=== PATIENT | female | born 1945 | race Caucasian/White ===

== ENCOUNTER 2017-01-05 12:16 | Outpatient (CLI) | payer MEDICARE ==
--- NOTE | 2017-01-09 07:10 | Mammography Report ---
DIGITAL BILATERAL SCREENING MAMMOGRAM: 01/05/2017 CLINICAL HISTORY: A 71-year-old female in for routine screening mammogram. Patient's family history indicated a paternal cousin with breast cancer in her 40s. Patient did have bilateral breast implan ts that were removed four years ago. COMPARISON: 03/24/2009, 06/16/2011, 09/04/2012, 12/25/2014 TECHNIQUE: Craniocaudad and oblique lateral views of each breast were obtained with [facility] Full Fie ld digital mammography. To compliment the exam, axillary exaggerated craniocaudad view of each breas t was obtained. FINDINGS: Extremely dense breasts are noted bilaterally. Extensive bilateral intermediate dru-shape d calcifications are noted directed toward the nipple. These calcifications are classic for benign s ecretory disease and are unchanged. There is also a globular calcification in the 9 o'clock position of the right breast measuring 1.5 cm. This calcification considering its large size is of benign et iology. It either represents an old burned-out fibroadenoma or atypical area of benign fat necrosis. No change is noted as compared to multiple preceding exams. IMPRESSION: BREASTS APPEAR RADIOGRAPHICALLY BENIGN. BIRADS 2 - BENIGN. RECOMMENDATIONS: Annual bilateral screening mammography. STANDARD QUALIFYING STATEMENTS 1. This examination was reviewed with the aid of Computer-Aided Detection (CAD). 2. A negative or benign imaging report should not delay biopsy if clinically suspicious findings are present. Consider surgical consultation if warranted. More than 5% of cancers are not identified by i maging. 3. Dense breasts may obscure an underlying neoplasm. JOB #: [id number] EXT JOB #:[id number]
== END 2017-01-05 12:17 | disposition home or self-care (01) ==
LOC: DI 12:16
PROVIDERS: ATTEND Internal Medicine
DX: Z12.31 Encounter for screening mammogram for malignant neoplasm of breast (principal); Z80.3 Family history of malignant neoplasm of breast
CPT/HCPCS: 77067

== ENCOUNTER 2017-01-05 12:23 | Outpatient (CLI) | payer MEDICARE ==
--- NOTE | 2017-01-05 16:13 | DEXA Report ---
DEXA SCAN: 01/05/2017 CLINICAL INDICATION: Postmenopausal. TECHNIQUE: Dual energy x-ray absorptiometry (DXA) was performed on a Netre[employer] system. Regions measured are the AP spine, femoral neck, and, if needed, forearm. COMPARISON: None. In accordance with the International Society for Clinical Densitometry (ISCD) guidelines, data from previous exams may be reanalyzed using current recommendations and techniques. This is done to allow a more accurate basis for comparison with the current study. FINDINGS: The data for the lumbar spine is as follows: REGION BMD (g/cm/cm) T-SCORE Z-SCORE L1 1.084 -0.4 1.3 L2 1.299 0.8 2.5 L3 1.207 0.1 1.7 L4 1.212 0.1 1.8 TOTAL 1.200 0.2 1.8 NOTE: All evaluable vertebrae are used for classification. The data for the hip is as follows: REGION BMD (g/cm/cm) T-SCORE Z-SCORE Neck 0.708 -2.4 -0.6 TOTAL 0.793 -1.7 -0.1 NOTE: The femoral neck or total proximal femur, whichever is lowest, is used for classification. IMPRESSION: THE WHO CLASSIFICATION BASED ON THE INTERNATIONAL REFERENCE STANDARD IS OSTEOPENIA. THE FRACTURE RISK IS INCREASED. RECOMMENDATION: Patients with diagnosis of osteoporosis or osteopenia should have regular bone mineral density assessment. For those eligible for Medicare, routine testing is allowed once every 2 years. Testing frequency can be increased for patients who have rapidly progressing disease or for those who are receiving medical therapy to restore bone mass. COMMENT: World Health Organization (WHO) definitions for osteoporosis and osteopenia: NORMAL BMD: T-score at -1.0 or higher, fracture risk is low. OSTEOPENIA BMD: T-score between -1.0 and -2.5, fracture risk is increased. OSTEOPOROSIS BMD: T-score at -2.5 or lower, fracture risk high. National Osteoporosis Foundation recommends: 1. Obtain adequate dietary calcium (at least 1200 mg per day) and vitamin D (400 -800 international units per day). 2. Participate, as appropriate, in regular weightbearing and muscle- strengthening exercise. 3. Avoid tobacco use and reduce alcohol and caffeine intake. 4. For more detailed information see the website at www.NOF.org. MTDD
== END 2017-01-05 12:24 | disposition home or self-care (01) ==
LOC: DI 12:23
PROVIDERS: ATTEND Internal Medicine
DX: M85.88 Other specified disorders of bone density and structure, other site (principal)
CPT/HCPCS: 77080

== ENCOUNTER 2017-05-08 12:17 | Outpatient (CLI) | payer MEDICARE ==
--- NOTE | 2017-05-08 17:54 | XRAY Report ---
CHEST, TWO VIEWS: 05/08/2017 HISTORY: Intermittent cough. There is mild reverse S-shaped scoliosis. There is moderate degenerative change in the spine. The h eart size is normal. The lungs are clear. There is no pleural fluid, pneumothorax, or evidence of a n acute finding when compared with 09/19/2012. IMPRESSION: CLEAR LUNGS. NO ACUTE FINDINGS. JOB #: [id number] EXT JOB #:[id number]
== END 2017-05-08 12:18 | disposition home or self-care (01) ==
LOC: DI 12:17
PROVIDERS: ATTEND Registered Nurse
DX: R05 Cough (principal)
CPT/HCPCS: 71020

== ENCOUNTER 2018-04-26 10:25 | Outpatient (CLI) | payer MEDICARE ==
--- NOTE | 2018-05-01 11:24 | Mammography Report ---
Reason: INITIAL CALL TO PATIENT [facility] [id number] BNU Procedure Date: 04/26/2018 Accession Number: [id number] / [id number] Procedure: CHAVO - Screening Mammo Dig Bilat CPT Code: FULL RESULT: EXAM: Screening Mammo Dig Bilat DATE: 04/26/2018 1:26 PM CLINICAL HISTORY: Screening mammogram TECHNIQUE: Bilateral CC and MLO views were obtained. COMPARISON: Mammogram 01/05/2017 FINDINGS: The breast parenchyma is extremely dense which may limit the sensitivity of mammography. There are benign-appearing calcifications. No suspicious masses, clustered microcalcifications, or regions of architectural distortion are identified. IMPRESSION: Benign findings RECOMMENDATION: Routine annual screening unless otherwise clinically indicated. BIRADS CATEGORY 2: Benign findings STANDARD QUALIFYING STATEMENTS: 1. This examination was reviewed with the aid of Computer-Aided Detection (CAD). 2. A negative or benign imaging report should not delay biopsy if clinically suspicious findings are present. Consider surgical consultation if warrented. More than 5% of cancers are not identified by imaging. 3. Dense breasts may obscure an underlying neoplasm.
== END 2018-04-26 10:26 | disposition home or self-care (01) ==
LOC: DI 10:25
PROVIDERS: ATTEND Radiology Diagnostic Radiology
DX: Z12.31 Encounter for screening mammogram for malignant neoplasm of breast (principal)
CPT/HCPCS: 77067

== ENCOUNTER 2018-05-04 20:38 | Emergency (ER) | payer MEDICARE ==
[2018-05-04 20:54] VITALS: BP 138/82
--- NOTE | 2018-05-04 21:38 | ED Physician Documentation ---
PD HPI UPPER EXT INJURY - Stated complaint Stated Complaint: FINGER LAC - Chief complaint Chief Complaint: Laceration - History obtained from History obtained from: Patient - History of Present Illness Location: Right, Finger (ring) Type of injury: Laceration Timing - onset: How many hours ago (1) Timing - duration: Hours (1) Timing - details: Abrupt onset Pain level max: 3 Pain level now: 2 Improved by: Rest Worsened by: Moving, Palpating Associated symptoms: No: Weakness, Numbness, Tingling, Swelling, Discolored Recently seen: Not recently seen - Additonal information Additional information: Patient is a 73 year old female who presents to the emergency department with a laceration on the dorsal side of her R index finger. States that she reached her hand into a container not realizing there was a broken bottle inside. States her friend who was a nurse recommended that she come into the ER for stitches. States her last tetanus shot was 5 years ago. Review of Systems Neurologic: denies: Numbness PD PAST MEDICAL HISTORY - Past Medical History Past Medical History: Yes Cardiovascular: Hypertension, High cholesterol Endocrine/Autoimmune: HyPOthyroidism GI: GERD Psych: Anxiety - Past Surgical History Past Surgical History: Yes Ortho: Carpal Tunnel surgery, Other - Present Medications Home Medications: Ambulatory Orders Medication Instructions Recorded Confirmed No Known Home Medications 05/04/18 05/04/18 - Allergies Allergies/Adverse Reactions: Allergies Allergy/AdvReac Type Severity Reaction Status Date / Time metronidazole [From Flagyl] Allergy Unknown Unknown Verified 05/04/18 20:54 Metronidazole HCl * Allergy Unknown Unknown Verified 05/04/18 20:54 [From Flagyl] - Social History Does the pt smoke?: No Smoking Status: Never smoker Does the pt drink ETOH?: Yes Does the pt have substance abuse?: No - Immunizations Immunizations are current?: Yes PD ED PE NORMAL - Vitals Vital signs reviewed: Yes - General General: Alert and oriented X 3, No acute distress - HEENT HEENT: Moist mucous membranes - Neck Neck: Supple, no meningeal sign - Extremities Extremities: Other (R ring finger - 1cm, flap laceration, dorsal aspect. NVI. no tendon or joint involvement. ) - Neuro Neuro: Alert and oriented X 3 Results - Vitals Vitals: Vital Signs - 24 hr 05/04/18 20:51 Temperature 36 C L Heart Rate 103 H Respiratory 18 Rate Blood Pressure 138/82 H O2 Saturation 97 Oxygen O2 Source Room air Procedures - Laceration (location) R ring finger Length in cm: 1 Wound type: Flap, Superficial Neurovascular status: Sensory intact, Motor intact, Vascular intact Tendon involvement: Tendon intact. No: Tendon Injury Wound Preparation: Irrigated copiously NS, Wound explored, To the base Skin layer closure: Dermabond, Steri strips Other: Patient tolerated well, No complications, Neurovascular intact, Dressing applied (splint), Tetanus UTD Complexity: Simple PD MEDICAL DECISION MAKING - ED course Complexity details: considered differential, d/w patient, d/w family ED course: Patient is a 73-year-old female with a right ring finger laceration. This is superficial and concerned that a suture will not hold adequately. We discussed closure options and patient elected Steri-Strips and Dermabond. This was performed and tolerated well. A finger splint was then applied to immobilize the joint while the laceration heals. Warnings of infection and instructions on wound care given at bedside. Also counseled on how to minimize scarring. Tetanus is up-to-date Patient counseled regarding signs and symptoms for which I believe and urgent re-evaluation would be necessary. Patient with good understanding of and agreement to plan and is comfortable going home at this time This document was made in part using voice recognition software. While efforts are made to proofread this document, sound alike and grammatical errors may occur. - Sepsis Event Vital Signs: Vital Signs - 24 hr 05/04/18 20:51 Temperature 36 C L Heart Rate 103 H Respiratory 18 Rate Blood Pressure 138/82 H O2 Saturation 97 Oxygen O2 Source Room air Departure - Departure Disposition: 01 Home, Self Care Clinical Impression: Laceration Condition: Good Instructions: ED Laceration Ext Skin Glue Follow-Up: Rebecca Gonzales ARNP [Primary Care Provider] - Comments: Please keep the wound covered for 1 week. Do not put any antibiotic ointment on the wound because it will dissolve the glue. Return if you worsen or show signs of infection (redness, pus, swelling, fever, increased pain). Discharge Date/Time: 05/04/18 22:27
== END 2018-05-04 22:27 | disposition home or self-care (01) ==
LOC: ED 20:38
DX: S61.214A Laceration without foreign body of right ring finger without damage to nail, initial encounter (principal); W25.XXXA Contact with sharp glass, initial encounter; I10 Essential (primary) hypertension
CPT/HCPCS: 12001; 99282; 99283

== ENCOUNTER 2018-08-07 14:29 | Outpatient (CLI) | payer MEDICARE ==
--- NOTE | 2018-08-08 10:51 | XRAY Report ---
Reason: CHRONIC BACK PAIN Procedure Date: 08/07/2018 Accession Number: [id number] / [id number] Procedure: XR - Lumbar Spine 2 View CPT Code: FULL RESULT: EXAM: LUMBOSACRAL SPINE RADIOGRAPHY EXAM DATE: 08/07/2018 03:32 PM. CLINICAL HISTORY: Chronic back pain. COMPARISONS: None. TECHNIQUE: 3 views. FINDINGS: Alignment: There is 12-14 degrees of dextroscoliotic curvature apex at L1. No anterolisthesis. Bones: Five [id number] lumbar vertebral bodies are present. No fractures or bone lesions. Disks: There is mild degenerative disk space narrowing in the lower thoracic spine T12-L1, L1-L2 with mild to moderate anterior and lateral marginal osteophyte. Marginal osteophyte also noted at L4-L5 and L5-S1. Facets: Mild degenerative facet changes noted at L5-S1. Sacroiliac Joints: Unremarkable. Soft Tissues: The visualized bowel gas pattern appears normal. 18 mm well-corticated calcification noted soft tissues of the right chest likely within the breast, favoring benign popcorn-type calcification of fibroadenoma. IMPRESSION: Multilevel degenerative changes as described with 12-14 degrees of dextroscoliosis, apex at L1. RADIA
== END 2018-08-07 14:30 | disposition home or self-care (01) ==
LOC: DI 14:29
PROVIDERS: ATTEND Registered Nurse
DX: M47.817 Spondylosis without myelopathy or radiculopathy, lumbosacral region (principal); M41.86 Other forms of scoliosis, lumbar region
CPT/HCPCS: 72100

== ENCOUNTER 2019-05-19 14:38 | Outpatient (CLI) | payer MEDICARE ==
--- NOTE | 2019-05-20 09:07 | Mammography Report ---
Reason: SCREENING MAMMO Procedure Date: 05/19/2019 Accession Number: [id number] / [id number] Procedure: CHAVO - Screening Mammo w/Liang CPT Code: FULL RESULT: EXAM: Screening Mammo w/Liang DATE: 05/19/2019 3:32 PM CLINICAL HISTORY: Screening TECHNIQUE: (B) - Bilateral CC and MLO views were obtained. COMPARISON: None available PARENCHYMAL PATTERN: (VD) - The breasts demonstrate extremely dense parenchyma bilaterally, limiting the sensitivity of mammography. FINDINGS: Bilaterally symmetric benign-appearing secretory disease. Large calcified degenerating fibroadenoma upper outer quadrant right breast, middle one third of no clinical significance. Otherwise, there are no suspicious masses, calcifications, or areas of distortion. IMPRESSION: Benign findings. BI-RADS category 2. RECOMMENDATION: (ANNUAL) - Recommend routine annual screening mammography. BI-RADS CATEGORY: (2) - Benign Findings. STANDARD QUALIFYING STATEMENTS: 1. This examination was not reviewed with the aid of Computer-Aided Detection (CAD). 2. A negative or benign imaging report should not preclude biopsy if clinically suspicious findings are present. 3. Dense breasts may obscure an underlying neoplasm. 4. This examination was reviewed with the aid of 3D breast imaging (tomosynthesis).
== END 2019-05-19 14:39 | disposition home or self-care (01) ==
LOC: DI 14:38
DX: Z12.31 Encounter for screening mammogram for malignant neoplasm of breast (principal)
CPT/HCPCS: 77063; 77067

== ENCOUNTER 2019-06-24 13:54 | Outpatient (CLI) | payer MEDICARE ==
--- NOTE | 2019-06-25 11:47 | XRAY Report ---
Reason: DYSPNEA Procedure Date: 06/24/2019 Accession Number: [id number] / [id number] Procedure: XR - Chest 2 View X-Ray CPT Code: 63819 Final Report FULL RESULT: EXAM: CHEST RADIOGRAPHY EXAM DATE: 06/24/2019 02:07 PM. CLINICAL HISTORY: Dyspnea. COMPARISON: CHEST 2 VIEW PA/LAT 05/08/2017 12:20 PM. TECHNIQUE: 2 views. FINDINGS: Lungs/Pleura: Stable dense nodule at the right lateral costophrenic angle is consistent with a calcified nodule, either within the lung or the chest wall/breast. No new or acute focal opacities evident. No pleural effusion. No pneumothorax. Normal volumes. Mediastinum: Heart and mediastinal contours are unremarkable. Other: S shaped thoracolumbar scoliosis and associated degenerative disease redemonstrated. IMPRESSION: No acute abnormality of the chest or significant interval change demonstrated. RADIA
== END 2019-06-24 13:55 | disposition home or self-care (01) ==
LOC: DI 13:54
PROVIDERS: ATTEND Nurse Practitioner Family
DX: R06.00 Dyspnea, unspecified (principal)
CPT/HCPCS: 71046

== ENCOUNTER 2019-07-04 13:59 | Outpatient (CLI) | payer MEDICARE ==
[2019-07-04 17:25] LABS: EOSINOPHILS % (AUTO) 4.9 %; HGB - HEMOGLOBIN 13.2 g/dL (12.0-16.0); LYMPHOCYTES % (AUTO) 41.4 %; MEAN CORPUSCULAR HEMOGLOBIN 31.4 pg (27.0-31.0); MEAN CORPUSCULAR HGB CONC 32.4 g/dL (32.0-36.0); MEAN CORPUSCULAR VOLUME 96.9 fL (81.0-99.0); MEAN PLATELET VOLUME 11.2 fL (7.9-10.8); MONOCYTES % (AUTO) 9.7 %; NEUTROPHILS % (AUTO) 42.6 %; PLT - PLATELET COUNT 249 10^3/uL (130-450); RED CELL DISTRIBUTION WIDTH 14.2 % (12.0-15.0); WHITE BLOOD COUNT 9.8 x10^3/uL (4.8-10.8)
[2019-07-04 17:33] LABS: ABNORMAL LYMPHS % (MANUAL) 0 %; BAND NEUTROPHILS % (MANUAL) 0 %
[2019-07-04 17:55] LABS: DIFFERENTIAL COMMENT MANUAL DIFFERENTIAL; EOSINOPHILS # (MANUAL) 0.6 10^3/uL (0-0.7); LYMPHOCYTES % (MANUAL) 41 %; PLATELET ESTIMATE, MANUAL NORMAL (130-450,000) (NORMAL); PLATELET MORPHOLOGY NORMAL APPEARANCE (NORMAL); RBC MORPHOLOGY (MULTIPLE) NORMAL APPEARANCE (NORMAL)
== END 2019-07-04 14:00 | disposition home or self-care (01) ==
LOC: LAB.S 13:59
PROVIDERS: ATTEND Nurse Practitioner Family
DX: D72.820 Lymphocytosis (symptomatic) (principal)
CPT/HCPCS: 36415; 85025; 85651; 86140

== ENCOUNTER 2019-07-10 12:59 | Outpatient (CLI) | payer MEDICARE ==
[~2019-07-10 12:59] MED LIST: ALBUTEROL NEB 2.5 MG/3 ML INH ONE
== END 2019-07-10 13:00 | disposition home or self-care (01) ==
LOC: RT 12:59
PROVIDERS: ATTEND Nurse Practitioner Family
DX: R91.1 Solitary pulmonary nodule (principal)
CPT/HCPCS: 94010; 94727; 94729

== ENCOUNTER 2020-05-13 09:43 | Outpatient (CLI) | payer MEDICARE ==
--- NOTE | 2020-05-13 10:37 | DEXA Report ---
PROCEDURE: Dexa Spine and/or Hip INDICATIONS: MENOPAUSAL TECHNIQUE: Dual energy x-ray absorptiometry (DXA) was performed on a Q.ME System. Regions measur ed are the AP Spine, femoral neck, and if needed forearm. COMPARISON: None. FINDINGS: Lumbar Spine: Bone Mineral Density 1.256 g/cm/cm,T score 0.6, Left Hip: Bone Mineral Density 0.803 g/cm/cm,T score -1.6, Left Femoral Neck: Bone Mineral Density 0.680 g/cm/cm, T score -2.6, (T score greater or equal to -1.0: NORMAL) (T score from -1.1 to -2.4: OSTEOPENIA) (T score less than or equal to -2.5 to: OSTEOPOROSIS) Impression: Osteoporosis. Patients with diagnosis of osteoporosis or osteopenia should have regular bone mineral density assess ment. For those eligible for Medicare, routine testing is allowed once every 2 years. Testing frequ ency can be increased for patients who have rapidly progressing disease or for those who are receivin g medical therapy to restore bone mass. Reviewed by: Shiva Mcdonough MD on 05/13/2020 10:35 AM PDT Approved by: Shiva Mcdonough MD on 05/13/2020 10:35 AM PDT Station ID: [id number]
== END 2020-05-13 09:44 | disposition home or self-care (01) ==
LOC: DI 09:43
PROVIDERS: ATTEND Nurse Practitioner Family
DX: M81.0 Age-related osteoporosis without current pathological fracture (principal)
CPT/HCPCS: 77080

== ENCOUNTER 2020-05-21 12:49 | Outpatient (CLI) | payer MEDICARE ==
--- NOTE | 2020-05-24 10:27 | Mammography Report ---
BILATERAL DIGITAL DIAGNOSTIC MAMMOGRAM 3D/2D: 05/21/2020 CLINICAL: Diffuse left breast pain. / tenderness. Comparison is made to exams dated: 05/19/2019 mammogram, 04/26/2018 mammogram, 01/05/2017 mammogram, 12/25 mammogram, 09/04/2012 mammogram, and 06/16/2011 mammogram - [facility]. The t issue of both breasts is predominantly fatty. No significant masses, calcifications, or other findings are seen in either breast. There has been no significant interval change. IMPRESSION: NEGATIVE There is no mammographic evidence of malignancy. A 1 year screening mammogram is recommended. This exam was interpreted at Station ID: [id number]. NOTE: For mammograms, a report in lay terms will be sent to the patient. Approximately 15% of breast malignancies will not be visualized mammographically. In the management of a palpable breast mass, a negative mammogram must not discourage biopsy of a clinically suspicious lesion. Electronically Signed By: Kobe Diaz M.D., jr/hilario:05/21/2020 16:26:12 ACR BI-RADS Category 1: Negative 3341F PARENCHYMAL PATTERN: (F) - The breast(s) demonstrate(s) diffuse fatty replacement. BI-RADS CATEGORY: (1) - 1 RECOMMENDATION: (ANNUAL) - Recommend routine annual screening mammography. [id number] 1 year screening LATERALITY: (B)
== END 2020-05-21 12:50 | disposition home or self-care (01) ==
LOC: DI 12:49
PROVIDERS: ATTEND Nurse Practitioner Family
DX: N64.4 Mastodynia (principal)
CPT/HCPCS: 77066

== ENCOUNTER 2021-01-28 14:42 | Outpatient (CLI) | payer MEDICARE ==
--- NOTE | 2021-01-28 15:08 | XRAY Report ---
PROCEDURE: Knee 3 View RT INDICATIONS: PAIN IN RT KNEE TECHNIQUE: 3 views of the right knee(s) were acquired. COMPARISON: None. FINDINGS: Bones: No fractures or dislocations. No suspicious bony lesions. Mild to moderate tricompartmental osteoarthritis is seen more prominent in medial femoral tibial compartment. Soft tissues: No joint effusion. No suspicious soft tissue calcifications. IMPRESSION: Mild to moderate tricompartmental osteoarthritis. No fracture or dislocation. No signifi cant joint effusion. Reviewed by: Shiva Mcdonough MD on 01/28/2021 3:06 PM PDT Approved by: Shiva Mcdonough MD on 01/28/2021 3:06 PM PDT Station ID: [id number]
== END 2021-01-28 14:43 | disposition home or self-care (01) ==
LOC: DI 14:42
PROVIDERS: ATTEND Registered Nurse
DX: M25.561 Pain in right knee (principal); M17.11 Unilateral primary osteoarthritis, right knee

== ENCOUNTER 2021-02-18 16:00 | Outpatient (CLI) | payer MEDICARE | END 2021-02-18 16:01 | disposition home or self-care (01) | LOC: DI 16:00 | PROVIDERS: ATTEND Registered Nurse | DX: K11.7 Disturbances of salivary secretion (principal); M95.8 Other specified acquired deformities of musculoskeletal system | CPT/HCPCS: 81599 ==

== ENCOUNTER 2021-02-18 16:11 | Outpatient (CLI) | payer MEDICARE ==
--- NOTE | 2021-02-18 16:56 | XRAY Report ---
PROCEDURE: Chest 3 View X-Ray INDICATIONS: Abnormal prominence of the clavicle. TECHNIQUE: 2 view(s) of the chest. COMPARISON: None. FINDINGS: There is some minimal asymmetric prominence of the right sternoclavicular joint which may be due to d egenerative change. Otherwise the clavicles appear symmetric and normal in appearance. There is no fr acture deformity in either clavicle. Remaining osseous structures intact. Cardiomediastinal silhouett e is normal. Lungs are clear. IMPRESSION: Minimal asymmetric prominence of the right sternal clavicular joint which could be due t o degenerative change. A CT chest would be recommended if there is clinical concern for a primary bon e neoplasm or other process related to the clavicles, as chest radiography is relatively insensitive. Reviewed by: Kobe Diaz MD on 02/18/2021 4:54 PM PDT Approved by: Kobe Diaz MD on 02/18/2021 4:54 PM PDT Station ID: [id number]
== END 2021-02-18 16:12 | disposition home or self-care (01) ==
LOC: DI 16:11
PROVIDERS: ATTEND Registered Nurse
DX: M95.8 Other specified acquired deformities of musculoskeletal system (principal); K11.7 Disturbances of salivary secretion
CPT/HCPCS: 81599; 86235

== ENCOUNTER 2022-02-02 15:09 | Outpatient (CLI) | payer MEDICARE ==
[2022-02-02 15:22] LABS: BASOPHILS # (AUTO) 0.1 10^3/uL (0.0-0.1); BASOPHILS % (AUTO) 1.1 %; EOSINOPHILS # (AUTO) 0.2 10^3/uL (0.0-0.7); EOSINOPHILS % (AUTO) 2.7 %; HCT - HEMATOCRIT 40.3 % (37.0-47.0); HGB - HEMOGLOBIN 13.5 g/dL (12.0-16.0); LYMPHOCYTES # (AUTO) 4.1 10^3/uL (1.5-3.5); LYMPHOCYTES % (AUTO) 45.7 %; MEAN CORPUSCULAR HEMOGLOBIN 31.5 pg (27.0-31.0); MEAN CORPUSCULAR HGB CONC 33.5 g/dL (32.0-36.0); MEAN CORPUSCULAR VOLUME 93.9 fL (81.0-99.0); MONOCYTES # (AUTO) 0.9 10^3/uL (0.0-1.0); MONOCYTES % (AUTO) 10.2 %; NEUTROPHILS # (AUTO) 3.6 10^3/uL (1.5-6.6); NEUTROPHILS % (AUTO) 39.9 %; PLT - PLATELET COUNT 231 10^3/uL (130-450); RED BLOOD COUNT 4.29 10^6/uL (4.20-5.40); RED CELL DISTRIBUTION WIDTH 14.7 % (12.0-15.0)
[2022-02-02 15:37] LABS: ALBUMIN 4.2 g/dL (3.2-5.5); ALBUMIN/GLOBULIN RATIO 1.3 (1.0-2.2); BILIRUBIN,TOTAL 0.5 mg/dL (0.2-1.0); CALCIUM 9.6 mg/dL (8.5-10.3); CREATININE 0.9 mg/dL (0.4-1.0); TOTAL PROTEIN 7.5 g/dL (6.7-8.2)
[2022-02-02 20:45] LABS: ESTIMATED AVERAGE GLUCOSE 114 mg/dL (70-100); HEMOGLOBIN A1c% 5.6 % (4.27-6.07)
== END 2022-02-02 15:10 | disposition home or self-care (01) ==
LOC: LAB 15:09
PROVIDERS: ATTEND Registered Nurse
DX: D72.820 Lymphocytosis (symptomatic) (principal); R79.9 Abnormal finding of blood chemistry, unspecified
CPT/HCPCS: 36415; 80053; 83036; 85025

== ENCOUNTER 2022-06-15 10:47 | Outpatient (CLI) | payer MEDICARE | END 2022-06-15 10:48 | disposition critical access hospital (66) | LOC: EMS 10:47 | DX: R10.84 Generalized abdominal pain (principal); R11.2 Nausea with vomiting, unspecified; R19.7 Diarrhea, unspecified | CPT/HCPCS: A0425; A0427 ==

== ENCOUNTER 2022-06-15 11:12 | Inpatient (IN) | payer MEDICARE ==
[2022-06-15 11:35] LABS: BASOPHILS # (AUTO) 0.1 10^3/uL (0.0-0.1); BASOPHILS % (AUTO) 0.7 %; EOSINOPHILS # (AUTO) 0.4 10^3/uL (0.0-0.7); HCT - HEMATOCRIT 42.5 % (37.0-47.0); LYMPHOCYTES # (AUTO) 4.5 10^3/uL (1.5-3.5); LYMPHOCYTES % (AUTO) 23.3 %; MEAN CORPUSCULAR HEMOGLOBIN 30.8 pg (27.0-31.0); MEAN CORPUSCULAR HGB CONC 32.9 g/dL (32.0-36.0); MEAN CORPUSCULAR VOLUME 93.6 fL (81.0-99.0); MEAN PLATELET VOLUME 10.3 fL (7.9-10.8); MONOCYTES # (AUTO) 1.1 10^3/uL (0.0-1.0); MONOCYTES % (AUTO) 5.6 %; NEUTROPHILS % (AUTO) 67.8 %; PLT - PLATELET COUNT 245 10^3/uL (130-450); RED BLOOD COUNT 4.54 10^6/uL (4.20-5.40); RED CELL DISTRIBUTION WIDTH 14.6 % (12.0-15.0); WHITE BLOOD COUNT 19.2 x10^3/uL (4.8-10.8)
[2022-06-15] MEDS ORDERED: SODIUM CHLORIDE 0.9% 1,000 ML IV STA ×2 (12:00→14:30)
[2022-06-15] MEDS ORDERED: MORPHINE 2 MG/ML CARPUJECT IVP STA (12:00)
[2022-06-15] MEDS ORDERED: ONDANSETRON 4 MG/2 ML VIAL IVP STA (12:00)
[2022-06-15] MEDS ORDERED: iohexoL-300 100 ML VIAL ONE (12:06)
[2022-06-15 12:15] LABS: ALBUMIN/GLOBULIN RATIO 1.2 (1.0-2.2); ALKALINE PHOSPHATASE 49 IU/L (42-121); ALT ALANINE AMINOTRANSFERASE 23 IU/L (10-60); AST ASPARTATE AMINOTRANSFERASE 27 IU/L (10-42); BILIRUBIN,TOTAL 0.7 mg/dL (0.2-1.0); BUN - BLOOD UREA NITROGEN 13 mg/dL (6-20); CALCIUM 9.4 mg/dL (8.5-10.3); CARBON DIOXIDE - CO2 26 mmol/L (21-32); CHLORIDE 103 mmol/L (101-111); CREATININE 0.8 mg/dL (0.4-1.0); GFR - MDRD 69 (>89); GLUCOSE 125 mg/dL (70-100); LIPASE > 4800 U/L (22-51); POTASSIUM 3.8 mmol/L (3.5-5.0); SODIUM 139 mmol/L (135-145); TOTAL PROTEIN 7.3 g/dL (6.7-8.2)
--- NOTE | 2022-06-15 12:20 | ED Physician Documentation ---
PD HPI ABD PAIN - Stated complaint Stated Complaint: ABD PX - Chief complaint Chief Complaint: Abd Pain - History obtained from History obtained from: Patient - Additional information Additional information: Patient is a 77-year-old female presenting for evaluation of right upper quadrant pain and vomiting that started suddenly this morning after having her morning coffee. She reports using honey and creamer in her coffee. She has had sharp right upper quadrant pain and several episodes of emesis consisting of bile. There is been no blood in her emesis. She had several episodes of loose stools this morning with no blood. She had Khmer food last night denies having any abdominal symptoms then. She feels chills and achy And generally unwell. She reports all having her gallbladder and denies abdominal surgeries. She denies chest pain or difficulty breathing. Nothing makes her symptoms better. She did receive 4 mg of IV Zofran from EMS without any improvement. Patient denies alcohol use. She denies history of pancreatitis or gallstones. Review of Systems Constitutional: denies: Fever Nose: denies: Congestion Cardiac: denies: Chest pain / pressure Respiratory: denies: Dyspnea, Cough GI: reports: Abdominal Pain, Nausea, Vomiting Musculoskeletal: denies: Back pain Neurologic: denies: Headache PD PAST MEDICAL HISTORY - Past Medical History Cardiovascular: Hypertension, High cholesterol Endocrine/Autoimmune: HyPOthyroidism GI: GERD Psych: Anxiety - Past Surgical History Past Surgical History: Yes Ortho: Carpal Tunnel surgery, Other - Present Medications Home Medications: Ambulatory Orders Medication Instructions Recorded Confirmed Levothyroxine [Synthroid] 75 mcg PO QDAC 06/15/22 - Allergies Allergies/Adverse Reactions: Allergies Allergy/AdvReac Type Severity Reaction Status Date / Time metronidazole [From Flagyl] Allergy Unknown Unknown Verified 06/15/22 11:29 Metronidazole HCl * Allergy Unknown Unknown Verified 06/15/22 11:29 [From Flagyl] - Social History Does the pt smoke?: No Smoking Status: Never smoker Does the pt drink ETOH?: Yes Does the pt have substance abuse?: No - Immunizations Immunizations are current?: Yes PD ED PE NORMAL - General General: Alert and oriented X 3, Well developed/nourished, Other (Appears uncomfortable, actively vomiting (bilious emesis)) - HEENT HEENT: Atraumatic, Moist mucous membranes - Neck Neck: Supple, no meningeal sign - Cardiac Cardiac: RRR, Strong equal pulses - Respiratory Respiratory: No respiratory distress, Clear bilaterally - Abdomen Abdomen: Normal bowel sounds, Soft, Non distended, Other (Epigastric and right upper quadrant tenderness to palpation With guarding, no rebound, no lower a bdominal tenderness) - Derm Derm: Warm and dry - Extremities Extremities: No edema - Neuro Neuro: Normal speech Results - Vitals Vitals: Vital Signs - 24 hr 06/15/22 06/15/22 06/15/22 11:25 11:31 13:29 Temperature 36.4 C L 36.5 C Heart Rate 69 99 88 Respiratory 9 L 12 16 Rate Blood Pressure 145/66 H 145/66 H 133/60 H O2 Saturation 100 100 96 Oxygen O2 Source Room air - EKG (time done) 1221 Rate: Rate (enter#) Rhythm: NSR Jay: Normal Ischemia: No: ST elevation c/w ischemia - Labs Labs: Laboratory Tests 06/15/22 06/15/22 06/15/22 11:20 11:20 11:20 WBC 19.2 H RBC 4.54 Hgb 14.0 Hct 42.5 MCV 93.6 MCH 30.8 MCHC 32.9 RDW 14.6 Plt Count 245 MPV 10.3 Neut # (Auto) 13.0 H Lymph # (Auto) 4.5 H Cannon # (Auto) 1.1 H Eos # (Auto) 0.4 Baso # (Auto) 0.1 Absolute Nucleated RBC 0.00 Nucleated RBC % 0.0 Sodium 139 Potassium 3.8 Chloride 103 Carbon Dioxide 26 Anion Gap 10.0 BUN 13 Creatinine 0.8 Estimated GFR (MDRD) 69 L Glucose 125 H Lactic Acid Calcium 9.4 Total Bilirubin 0.7 AST 27 ALT 23 Alkaline Phosphatase 49 Total Protein 7.3 Albumin 4.0 Globulin 3.3 Albumin/Globulin Ratio 1.2 Triglycerides 124 Cholesterol 229 H LDL Cholesterol, Calc 136 H VLDL Cholesterol 25 HDL Cholesterol 68 LDL/HDL Ratio 2.0 Cholesterol/HDL Ratio 3.4 Lipase > 4800 H Urine Color Urine Clarity Urine pH Ur Specific [place] Urine Protein Urine Glucose (UA) Urine Ketones Urine Occult Blood Urine Nitrite Urine Bilirubin Urine Urobilinogen Ur Leukocyte Esterase Ur Microscopic Review Urine Culture Comments SARS-CoV-2 (PCR) 06/15/22 06/15/22 06/15/22 12:15 12:17 14:06 WBC RBC Hgb Hct MCV MCH MCHC RDW Plt Count MPV Neut # (Auto) Lymph # (Auto) Cannon # (Auto) Eos # (Auto) Baso # (Auto) Absolute Nucleated RBC Nucleated RBC % Sodium Potassium Chloride Carbon Dioxide Anion Gap BUN Creatinine Estimated GFR (MDRD) Glucose Lactic Acid 2.2 Calcium Total Bilirubin AST ALT Alkaline Phosphatase Total Protein Albumin Globulin Albumin/Globulin Ratio Triglycerides Cholesterol LDL Cholesterol, Calc VLDL Cholesterol HDL Cholesterol LDL/HDL Ratio Cholesterol/HDL Ratio Lipase Urine Color YELLOW Urine Clarity CLEAR Urine pH 5.5 Ur Specific [place] <=1.005 Urine Protein NEGATIVE Urine Glucose (UA) NEGATIVE Urine Ketones NEGATIVE Urine Occult Blood NEGATIVE Urine Nitrite NEGATIVE Urine Bilirubin NEGATIVE Urine Urobilinogen 0.2 (NORMAL) Ur Leukocyte Esterase NEGATIVE Ur Microscopic Review NOT INDICATED Urine Culture Comments NOT INDICATED SARS-CoV-2 (PCR) NOT DETECTED PD MEDICAL DECISION MAKING - ED course Complexity details: reviewed results, re-evaluated patient, d/w patient ED course: Pt with epigastric and RUQ pain. Found to have pancreatitis. No pseudocyst or abscess. No gallstones. Denies heavy ETOH use and triglycerides not elevated. Discussed with hospitalist for admission. Departure - Departure Disposition: 66 [facility] DC/Xfer Clinical Impression: Acute pancreatitis Qualifiers: Acute pancreatitis complication: no infection or necrosis Condition: Stable Discharge Date/Time: 06/15/22 17:56
[2022-06-15] MEDS ORDERED: iohexoL-300 100 ML VIAL IVP ONE (12:48)
--- NOTE | 2022-06-15 13:16 | CT Report ---
PROCEDURE: ABDOMEN/PELVIS W INDICATIONS: upper abd pain R>L/vomiting CONTRAST: 100ml omni 300 TECHNIQUE: After the administration of iv contrast, 5 mm thick sections acquired from the diaphragms to the symp hysis. 5 mm thick coronal and sagittal reformats were acquired. For radiation dose reduction, the f ollowing was used: automated exposure control, adjustment of mA and/or kV according to patient size. COMPARISON: None. FINDINGS: Image quality: Excellent. ABDOMEN: Lung bases: Lung bases are clear. Heart size is normal. Solid organs: Liver and spleen are normal in size and enhancement. Gallbladder is unremakable. Ramon iary system is non dilated. Pancreas demonstrates mild peripancreatic fluid without focal abscess or pseduocyst. Mild pancreatic edema is present. No ductal dilation. No adrenal nodules. Kidneys dem onstrate normal size and enhancement, without hydronephrosis. Peritoneum and bowel: Bowel loops demonstrate normal wall thickness and caliber. Colonic diverticul a are present without inflammatory change. Nodes and vessels: No retroperitoneal or mesenteric adenopathy by size criteria. Aorta and inferior vena cava are normal in size. Miscellaneous: Mild fat containing ventral hernia. PELVIS: Genitourinary: Bladder wall thickness is normal. Miscellaneous: No inguinal hernias or adenopathy. Bones: No suspicious bony lesions. No vertebral body compression fractures. IMPRESSION: Mild enlarged pancreatic edema with peripancreatic fluid consistent with pancreatitis. No abscess or pseudocysts. Diverticulosis. Reviewed by: Josey Phan MD on 06/15/2022 1:15 PM PDT Approved by: Josey Phan MD on 06/15/2022 1:15 PM PDT Station ID: [id number]
--- NOTE | 2022-06-15 14:06 | Ultrasound Report ---
PROCEDURE: Abdomen Limited INDICATIONS: RUQ pain TECHNIQUE: Real-time focused scanning was performed of the abdomen, with image documentation. COMPARISON: Same day CT abdomen and pelvis FINDINGS: Gallbladder normal. Liver unremarkable other than mild hepatic steatosis. No focal hepatic mass. Intrahepatic and extra hepatic biliary ducts are within normal limits. Visualized portions of the pancreas unremarkable. Right kidney normal. IMPRESSION: No acute finding. Mild hepatic steatosis. Reviewed by: Kobe Diaz MD on 06/15/2022 2:04 PM PDT Approved by: Kobe Diaz MD on 06/15/2022 2:04 PM PDT Station ID: [id number]
[2022-06-15 14:11] LABS: CHOL/HDL RATIO 3.4 (<4.4); CHOLESTEROL 229 mg/dL; HDL CHOLESTEROL 68 mg/dL; LDL CHOLESTEROL,CALCULATED 136 mg/dL; TRIGLYCERIDES 124 mg/dL; VLDL CHOLESTEROL 25 mg/dL
[2022-06-15 14:17] LABS: BILIRUBIN,URINE NEGATIVE (NEGATIVE); CLARITY,URINE CLEAR (CLEAR); GLUCOSE, URINE (UA) NEGATIVE (NEGATIVE); KETONES,URINE (UA) NEGATIVE (NEGATIVE); LEUKOCYTE ESTERASE, URINE NEGATIVE (NEGATIVE); NITRITE,URINE NEGATIVE (NEGATIVE); OCCULT BLOOD,URINE NEGATIVE (NEGATIVE); PH,URINE 5.5 PH (5.0-7.5); PROTEIN,URINE NEGATIVE (NEGATIVE); UROBILINOGEN,URINE 0.2 (NORMAL) E.U./dL (NORMAL)
[2022-06-15] MEDS ORDERED: METOCLOPRAMIDE 10 MG/2 ML VIAL IVP STA (14:30)
[2022-06-15] MEDS ORDERED: PROCHLORPERAZINE 10 MG/2 ML VIAL IVP PRN (14:31)
[2022-06-15] MEDS ORDERED: ONDANSETRON ODT 4 MG TABLET TL PRN (14:31)
[2022-06-15] MEDS ORDERED: GADOBUTROL 7.5 MMOL/7.5 ML VIAL ONE (14:51)
[2022-06-15] MEDS ORDERED: PROCHLORPERAZINE 10 MG/2 ML VIAL IVP STA (16:18)
[2022-06-15] MEDS ORDERED: GADOBUTROL 7.5 MMOL/7.5 ML VIAL IVP ONE (16:21)
--- NOTE | 2022-06-15 16:35 | MRI Report ---
PROCEDURE: MRCP W/WO INDICATIONS: pancreatitis CONTRAST: 6.4 TECHNIQUE: Coronal ultra fast SE through the abdomen, axial 2-D spoiled GE in- and [id number], and breath-hold T2 FSE with fat saturation through the biliary system and pancreas. Oblique coronal and axial thin- slice ultra fast SE, radial thick-slab ultra fast SE centered on the extrahepatic bile ducts. COMPARISON: CT abdomen pelvis and bladder ultrasound earlier today. FINDINGS: Image quality: Poor. Pancreas and biliary system: Homogeneous intrinsic T1 signal of the pancreas. There is peripancreatic T2 hyperintense signal consistent with edema. No loculated peripancreatic fluid collection. Edema at the paracolic gutters. No pancreatic ductal dilatation. No biliary ductal dilatation. No intraluminal filling defect. Gallbladder is not distended. No gallst ones seen. Other solid organs: Liver and spleen are normal in size. No adrenal nodules. Both kidneys are norm al in size, without hydronephrosis. Nodes and vessels: No retroperitoneal or mesenteric adenopathy by size criteria. Aorta and inferior vena cava are normal in size. Bowel and peritoneum: Unenhanced bowel loops are normal in caliber. No free fluid. Lung bases: No basal pleural effusions. Heart size is normal. Bones and soft tissues: No ventral hernias. Mild scoliosis. Bone marrow is of normal overall signal . IMPRESSION: 1. Findings consistent with interstitial edematous pancreatitis. 2. No necrosis or loculated peripancreatic fluid collection at this time. 3. No gallstones seen. No biliary or pancreatic ductal dilatation. Reviewed by: Toni Nava MD on 06/15/2022 4:33 PM PDT Approved by: Toni Nava MD on 06/15/2022 4:33 PM PDT Station ID: [id number]
--- NOTE | 2022-06-15 17:59 | HISTORY & PHYSICAL EXAMINATION ---
Chief Complaint - Chief Complaint Chief Complaint: Pancreatitis History of Present Illness - Admitted From Admitted From:: ED - History Obtained From History obtained from: Patient Exam Limitations: She was under sedation from pain medication. - History of Present Illness HPI Comment/Other: Ms. William is a 77 year old woman who was diagnosed with pancreatitis today after presenting to the ED this morning with abdominal pain and nausea. She says the pain is located in the epigastric region and radiates to the right upper quadrant. The pain has been constant since it started. She says she drank some coffee this morning with honey when she suddenly felt nauseous. She went to the bathroom and felt like she was going to have diarrhea but did not have any bowel movement at that time. She had one episode of vomiting when she was at home and vomited up the coffee she drank earlier. She has continued to vomit throughout the rest of today and the vomit has been yellow in color. She says the pain also started during this time too and the pain has been constant since this morning. She says she has never had pain like this before. She did eat some food at a [employer] last night and drank some wine with her dinner. She has experienced episodes of epigastric abdominal pain on and off in the past 30 years, which she says was caused by indigestion related to eating an unhealthier diet. She takes Tums for the indigestion. She has also taken Omeprazole one to two times a day for acid reflux. She does not have a history of right upper quadrant abdominal pain. She also does not have a history of abdominal surgeries. She does not have a family history of pancreatitis, frequent use of alcohol, or unexplained weight loss. She does not have any fever, chest pain, or shortness of breath. She was diagnosed with COVID-19 and influenza at the same time four weeks ago, and experienced a lack of appetite only due to being sick. She has recovered from this since. History - Past Medical History Cardiovascular: reports: Hypertension (Patient denies diagnosis of hypertension at this time), High cholesterol (Patient denies diagnosis of high cholesterol at this time) Endocrine/Autoimmune: reports: HyPOthyroidism (Patient denies diagnosis of h ypothyroidism at this time ) GI: reports: GERD Psych: reports: Anxiety (Patient denies diagnosis of anxiety at this time) Derm: reports: Other (She has a history of pre-cancerous skin lesions that have been removed. ) - Past Surgical History Ortho: reports: Carpal Tunnel surgery (Patient denies previous carpal tunnel surgery at this time ), Other (Patient denies history of surgeries at this time) - Family & Social History Family History: Mother: (Her father of pancreatic cancer at 82. Her mother of heart issues at 94. ), Father: , Other family: Alive and Well (Her brother has difficulties related to swallowing.) Living arrangement: At home Living Situation: With spouse/s.o. (She did use tobacco in her early 20s but does not use tobacco now. She drinks alcohol about once a month and usually drinks either a Cinda or a [employer] Lemonade. ) Meds/Allgy - Home Medications Home Medications: Ambulatory Orders Medication Instructions Recorded Confirmed Levothyroxine [Synthroid] 75 mcg PO QDAC 06/15/22 - Allergies Allergies/Adverse Reactions: Allergies Allergy/AdvReac Type Severity Reaction Status Date / Time metronidazole [From Flagyl] Allergy Unknown Unknown Verified 06/15/22 11:29 Metronidazole HCl * Allergy Unknown Unknown Verified 06/15/22 11:29 [From Flagyl] Review of Systems - Constitutional Constitutional: reports: Chills (She endorses chills that have been on and off for the past year that occur during the day followed by hot flashes at night. She uses a compound vaginal cream for these symptoms.). denies: Fever, Weight loss - Cardiovascular Cariovascular: denies: Chest pain - Respiratory Respiratory: denies: SOB at rest, SOB with exertion - Gastrointestinal Gastrointestinal: reports: Abdominal pain (Epigastric pain radiating to right upper quadrant), Nausea, Vomiting. denies: Constipation, Bloody stools - Genitourinary Genitourinary: reports: Frequency. denies: Dysuria, Urgency - Integumentary Integumentary: denies: Rash - Neurological Neurological: denies: Dizziness Exam - Vital Signs Reviewed Vital Signs: Yes Vital Signs: Vital Signs x48h Temp Pulse Resp BP Pulse Ox 06/15/22 13:29 36.5 C 88 16 133/60 H 96 06/15/22 11:31 99 12 145/66 H 100 06/15/22 11:25 36.4 C L 69 9 L 145/66 H 100 - Physical Exam General Appearance: positive: Moderate distress (She appeared to be in significant pain), Lethargic (She was sedated due to the pain medication but was still able to respond to questions when asked.) Eyes Bilateral: positive: Normal inspection Neck: positive: Nml inspection, Stiff neck Respiratory: positive: No respiratory distress, Breath sounds nml Cardiovascular: positive: Regular rate & rhythm Abdomen: positive: No distention, Tenderness (There was tenderness with p alpation of mid-epigastric region to right upper quadrant. She reported the most tenderness when the mid-epigastric region was palpated.), Guarding, Other (She did have one episode of vomiting during the exam but very little vomit came up) Skin: positive: Color nml, No rash, Warm, Dry, Other (Varicose veins present on bilateral legs) Extremities: positive: No pedal edema Conclusion/Plan - Problem List (1) Acute pancreatitis Conclusion/Plan: Ms. William is being admitted for acute pancreatitis diagnosed with CT of the abdomen and pelvis after presenting to the ED this morning and abdominal pain, vomiting, and nausea. MRCP was done and did not show any gallstones or dilatation of the biliary or pancreatic duct. She also does not have a history of significant alcohol use and only drinks alcohol once a month. MRCP and alcohol use history are less suggestive of alcohol-induced or gallstone-induced pancreatitis. Of note, she told nursing staff her father of pancreatic cancer at 82 which was not mentioned to us in the original history. Her triglyceride level from labs done was 124, making hypertriglyceridemia an unlikely cause of her pancreatitis. The specific cause of her pancreatitis is currently unclear. Her calculated [place] score was 2, with severe pancreatitis unlikely, however no LDH level was available during calculation. She was sedated with pain medication while the history was being obtained and it was difficult to obtain answers to questions about her health history and there are discrepancies between the history she provided us compared to previous medical records including documentation from the ED earlier today. We will follow-up w carla her tomorrow to confirm her health history and list of medications. We will continue to control her pain and nausea. Qualifiers: Acute pancreatitis complication: no infection or necrosis - Lab Results Fish Bones: 06/15/22 11:20 06/15/22 11:20
[2022-06-15] MEDS: LACTATED RINGERS 1,000 ML IV SCH ×2 (18:21→22:28)
[2022-06-15] MEDS: SODIUM CHLORIDE FLUSH 0.9% 10 ML SYRINGE IVP SCH ×2 (18:22→23:18)
[2022-06-15] MEDS: MORPHINE 2 MG/ML CARPUJECT IVP PRN (18:24)
[2022-06-16] MEDS ORDERED: SODIUM CHLORIDE 0.9% 1,000 ML IV ONE (00:32)
--- NOTE | 2022-06-16 00:34 | PROVIDER PROGRESS NOTE ---
Hospitalist Cross-cover Note - Cross-Cover Note Cross-Cover Note: Consult Information Member Facility: [facility] Requesting Clinician: Gloria Mayorga RN Patient Name: Valerie singh Date of : 1945 Gender: Female Reason for Consult Reason for Consult: Critical Lab Clinical Note Clinical Note: per rn - "Patient admitted for acute pancreatitis this evening. Blood culture preliminary result shows "Gram negative Bacilli" from Anerobic bottle drawn from Right antecubital area at 12:17 pm today. Patient had lactic acid drawn at the same time. Result was 2.2. Patient is sleeping comfortably at this time. Vital signs are WNL. No fever this shift." unable to reach rn via phone rocephin 1 gm qday started ns bolus 1000 ml
[2022-06-16] MEDS: MORPHINE 2 MG/ML CARPUJECT IVP PRN ×6 (01:53→22:58)
[2022-06-16] MEDS: LACTATED RINGERS 1,000 ML IV SCH (04:56)
[2022-06-16] MEDS: ENOXAPARIN 40 MG/0.4 ML SYRINGE SUBQ SCH (10:00)
[2022-06-16] MEDS: SODIUM CHLORIDE FLUSH 0.9% 10 ML SYRINGE IVP SCH ×3 (10:01→22:55)
[2022-06-16] MEDS: cefTRIAXone 1 GM in SODIUM CHLORIDE 0.9% MINIBAG 100 ML IV SCH (10:01)
[2022-06-16] MEDS: SODIUM CHLORIDE FLUSH 0.9% 10 ML SYRINGE IVP PRN ×3 (10:20→18:47)
--- NOTE | 2022-06-16 10:36 | PHARMACY PROGRESS NOTE ---
- Best Possible Medication History Admit Date and Time: 06/15/22 1431 Processed by: Pharmacy Medication History completed: Yes Patient Interview: Completed Secondary Source(s): Spouse/Significant other, Physician records, Pharmacy records, Insurance records As the person ultimately responsible for medication therapy, providers are able to order a medication from an existing home medication list in [facility] via the "Reconcile Routine" prior to Confirmation of that medication by production support specialist. Such practice is discouraged except when the physician, in their clinical judgment, deems that a medical need exists for a medication without regard to previous use.
[2022-06-16 12:33] LABS: BASOPHILS % (AUTO) 0.4 %; HCT - HEMATOCRIT 41.9 % (37.0-47.0); HGB - HEMOGLOBIN 13.5 g/dL (12.0-16.0); LYMPHOCYTES % (AUTO) 6.1 %; MEAN CORPUSCULAR HEMOGLOBIN 30.7 pg (27.0-31.0); MEAN CORPUSCULAR HGB CONC 32.2 g/dL (32.0-36.0); MEAN CORPUSCULAR VOLUME 95.2 fL (81.0-99.0); MEAN PLATELET VOLUME 10.2 fL (7.9-10.8); MONOCYTES % (AUTO) 4.3 %; NEUTROPHILS % (AUTO) 88.7 %; PLT - PLATELET COUNT 206 10^3/uL (130-450); RED CELL DISTRIBUTION WIDTH 15.4 % (12.0-15.0); WHITE BLOOD COUNT 24.8 x10^3/uL (4.8-10.8)
[2022-06-16 12:36] LABS: SLIDE REVIEW? Indicated
--- NOTE | 2022-06-16 12:49 | PROVIDER PROGRESS NOTE ---
Subjective - Prog Note Date Prog Note Date: 06/16/22 Prog Note Time: 12:47 - Subjective Subjective: Ms. William is a 77 year old woman who was admitted on 06/15/2022 for acute pancreatitis. Her pain is currently being controlled with Morphine and she received a dose of 1mg this morning. She says her pain has improved since yesterday but describes her abdomen now as achy and that the achiness is all over her abdomen. She does not have any nausea and has not vomited since yesterday. Her Jose and daughter Karla are here with her today. During admission, Ms. William mentioned that she has had abdominal pain she associated with indigestion, her daughter also confirmed this and says it's only been going on for the past year. Current Medications - Current Medications Current Medications: Active Medications Enoxaparin Sodium (Enoxaparin 40 Mg/0.4 Ml Syringe) 40 mg SUBQ DAILY [facility] Last Admin: 06/16/22 10:00 Dose: 40 mg Ceftriaxone Sodium 1 gm/ (Sodium Chloride) 100 mls @ 200 mls/hr IV DAILY [facility] Last Infusion: 06/16/22 10:35 Dose: Infused Morphine Sulfate (Morphine 2 Mg/Ml Carpuject) 2 mg IVP Q2HR PRN PRN Reason: Pain 8 to 10 Last Admin: 06/16/22 10:20 Dose: 1 mg Ondansetron HCl (Ondansetron Odt 4 Mg Tablet) 4 mg TL Q6HR PRN PRN Reason: Nausea / Vomiting Ondansetron HCl (Ondansetron 4 Mg/2 Ml Vial) 4 mg IVP Q6HR PRN PRN Reason: Nausea / Vomiting Prochlorperazine Edisylate (Prochlorperazine 10 Mg/2 Ml Vial) 10 mg IVP Q6HR PRN PRN Reason: Nausea / Vomiting Sodium Chloride (Sodium Chloride Flush 0.9% 10 Ml Syringe) 10 ml IVP PRN PRN PRN Reason: NEEDED PER PROVIDER ORDERS Last Admin: 06/16/22 10:20 Dose: 10 ml Sodium Chloride (Sodium Chloride Flush 0.9% 10 Ml Syringe) 10 ml IVP 0100,0900,1700 [facility] Last Admin: 06/16/22 10:01 Dose: 10 ml Levothyroxine [Synthroid] 75 mcg PO QDAC 06/15/22 Calcium Carbonate [Tums (Calcium Carbonate 500mg)] 1,000 mg PO BID PRN 06/16/22 Objective - Vital Signs/Intake & Output Reviewed Vital Signs: Yes Vital Signs: Vital Signs x48h Temp Pulse Resp BP Pulse Ox 06/16/22 07:32 37.5 C 106 H 16 113/52 L 93 Intake & Output: Intake & Output 06/13/22 06/14/22 06/15/22 06/16/22 23:59 23:59 23:59 23:59 Intake Total 4964.048 0068 Output Total 450 Balance 4928.880 8366 - Objective General Appearance: positive: Mild distress (She is having achiness all over her abdomen) Eyes Bilateral: positive: Normal inspection Neck: positive: Nml inspection. negative: Stiff neck Respiratory: positive: No respiratory distress, Breath sounds nml Cardiovascular: positive: Regular rate & rhythm Abdomen: positive: Nml bowel sounds, No distention, Tenderness (There is tenderness with palpation of the abdomen starting in the left lower quadrant radiating across the entire epigastric region to the right upper quadrant. The tenderness is worse in the mid epigastric region and right upper quadrant.) Skin: positive: Color nml, Warm, Dry Extremities: positive: Other (Varicose veins present on bilateral legs) Neurologic/Psychiatric: positive: Mood/affect nml - Lab Results Fish Bones: 06/16/22 12:29 06/15/22 11:20 Other Labs: Lab Results x24hrs 06/16/22 06/15/22 06/15/22 Range/Units 12:29 18:50 14:06 WBC 24.8 H (4.8-10.8) x10^3/uL RBC 4.40 (4.20-5.40) 10^6/uL Hgb 13.5 (12.0-16.0) g/dL Hct 41.9 (37.0-47.0) % MCV 95.2 (81.0-99.0) fL MCH 30.7 (27.0-31.0) pg MCHC 32.2 (32.0-36.0) g/dL RDW 15.4 H (12.0-15.0) % Plt Count 206 (130-450) 10^3/uL MPV 10.2 (7.9-10.8) fL Manual Slide Review Indicated Lactate Dehydrogenase 176 (91-225) IU/L Triglycerides ( - 149) mg/dL Cholesterol ( - 199) mg/dL LDL Cholesterol, Calc ( - 129) mg/dL VLDL Cholesterol mg/dL HDL Cholesterol (60 - ) mg/dL LDL/HDL Ratio (<4.4) Cholesterol/HDL Ratio (<4.4) Urine Color YELLOW Urine Clarity CLEAR (CLEAR) Urine pH 5.5 (5.0-7.5) PH Ur Specific [place] <=1.005 (1.002-1.030) Urine Protein NEGATIVE (NEGATIVE) mg/dL Urine Glucose (UA) NEGATIVE (NEGATIVE) mg/dL Urine Ketones NEGATIVE (NEGATIVE) mg/dL Urine Occult Blood NEGATIVE (NEGATIVE) Urine Nitrite NEGATIVE (NEGATIVE) Urine Bilirubin NEGATIVE (NEGATIVE) Urine Urobilinogen 0.2 (NORMAL) (NORMAL) E.U./dL Ur Leukocyte Esterase NEGATIVE (NEGATIVE) Ur Microscopic Review NOT INDICATED Urine Culture Comments NOT INDICATED SARS-CoV-2 (PCR) 06/15/22 06/15/22 Range/Units 12:15 11:20 WBC (4.8-10.8) x10^3/uL RBC (4.20-5.40) 10^6/uL Hgb (12.0-16.0) g/dL Hct (37.0-47.0) % MCV (81.0-99.0) fL MCH (27.0-31.0) pg MCHC (32.0-36.0) g/dL RDW (12.0-15.0) % Plt Count (130-450) 10^3/uL MPV (7.9-10.8) fL Manual Slide Review Lactate Dehydrogenase (91-225) IU/L Triglycerides 124 ( - 149) mg/dL Cholesterol 229 H ( - 199) mg/dL LDL Cholesterol, Calc 136 H ( - 129) mg/dL VLDL Cholesterol 25 mg/dL HDL Cholesterol 68 (60 - ) mg/dL LDL/HDL Ratio 2.0 (<4.4) Cholesterol/HDL Ratio 3.4 (<4.4) Urine Color Urine Clarity (CLEAR) Urine pH (5.0-7.5) PH Ur Specific [place] (1.002-1.030) Urine Protein (NEGATIVE) mg/dL Urine Glucose (UA) (NEGATIVE) mg/dL Urine Ketones (NEGATIVE) mg/dL Urine Occult Blood (NEGATIVE) Urine Nitrite (NEGATIVE) Urine Bilirubin (NEGATIVE) Urine Urobilinogen (NORMAL) E.U./dL Ur Leukocyte Esterase (NEGATIVE) Ur Microscopic Review Urine Culture Comments SARS-CoV-2 (PCR) NOT DETECTED ABX Reporting Has patient been on IV antibiotics over the past 48 hours?: Yes Assessment/Plan - Problem List (1) Bacteremia, escherichia coli Impression: Blood cultures drawn in the ED on 06/15 were positive for E. coli. She was started on IV Ceftriaxone 1g daily. Her WBC on 06/15 was 19.2 and she has not had a fever. We will continue to monitor her vitals and labs and obtain repeat blood cultures tomorrow. (2) Acute pancreatitis Impression: While her pain has improved since yesterday, she is now experiencing achiness throughout her abdomen. We will continue to control her pain with Morphine, give her IV fluids, and keep her NPO until her pain has improved and her lipase levels decrease. Qualifiers: Acute pancreatitis complication: no infection or necrosis
[2022-06-16 13:10] LABS: ALBUMIN 2.8 g/dL (3.2-5.5); ALBUMIN/GLOBULIN RATIO 0.9 (1.0-2.2); BILIRUBIN,TOTAL 2.8 mg/dL (0.2-1.0); CALCIUM 8.5 mg/dL (8.5-10.3); CREATININE 0.8 mg/dL (0.4-1.0); POTASSIUM 4.2 mmol/L (3.5-5.0); TOTAL PROTEIN 5.9 g/dL (6.7-8.2)
[2022-06-16 13:31] LABS: PLATELET ESTIMATE, MANUAL NORMAL (130-450,000) (NORMAL); PLATELET MORPHOLOGY NORMAL APPEARANCE (NORMAL); RBC MORPHOLOGY (MULTIPLE) NORMAL APPEARANCE (NORMAL)
[2022-06-16 13:35] LABS: ABNORMAL LYMPHS % (MANUAL) 0 %
[2022-06-16 13:36] LABS: BAND NEUTROPHILS % (MANUAL) 20 %; DIFFERENTIAL COMMENT MANUAL DIFFERENTIAL; LYMPHOCYTES # (MANUAL) 1.2 10^3/uL (1.5-3.5); LYMPHOCYTES % (MANUAL) 5 %; MONOCYTES # (MANUAL) 0.5 10^3/uL (0.0-1.0); NEUTROPHILS # (MANUAL) 23.1 10^3/uL (1.5-6.6)
[2022-06-16] MEDS: SODIUM CHLORIDE 0.9% 1,000 ML IV SCH (18:47)
[2022-06-17 04:42] LABS: BASOPHILS % (AUTO) 0.6 %; HCT - HEMATOCRIT 42.1 % (37.0-47.0); HGB - HEMOGLOBIN 13.7 g/dL (12.0-16.0); LYMPHOCYTES % (AUTO) 6.2 %; MEAN CORPUSCULAR HEMOGLOBIN 30.9 pg (27.0-31.0); MEAN CORPUSCULAR HGB CONC 32.5 g/dL (32.0-36.0); MEAN CORPUSCULAR VOLUME 94.8 fL (81.0-99.0); MEAN PLATELET VOLUME 11.2 fL (7.9-10.8); MONOCYTES % (AUTO) 3.5 %; NEUTROPHILS % (AUTO) 87.1 %; PLT - PLATELET COUNT 194 10^3/uL (130-450); RED BLOOD COUNT 4.44 10^6/uL (4.20-5.40); RED CELL DISTRIBUTION WIDTH 15.4 % (12.0-15.0); WHITE BLOOD COUNT 25.2 x10^3/uL (4.8-10.8)
[2022-06-17 04:56] LABS: ABNORMAL LYMPHS % (MANUAL) 0 %
[2022-06-17 05:11] LABS: ALBUMIN 2.7 g/dL (3.2-5.5); CALCIUM 8.5 mg/dL (8.5-10.3); CREATININE 0.8 mg/dL (0.4-1.0); POTASSIUM 3.3 mmol/L (3.5-5.0); TOTAL PROTEIN 5.5 g/dL (6.7-8.2)
[2022-06-17 05:29] LABS: BAND NEUTROPHILS % (MANUAL) 21 %; DIFFERENTIAL COMMENT MANUAL DIFFERENTIAL; LYMPHOCYTES # (MANUAL) 1.8 10^3/uL (1.5-3.5); LYMPHOCYTES % (MANUAL) 7 %; MONOCYTES # (MANUAL) 0.3 10^3/uL (0.0-1.0); NEUTROPHILS # (MANUAL) 23.2 10^3/uL (1.5-6.6); PLATELET ESTIMATE, MANUAL NORMAL (130-450,000) (NORMAL); RBC MORPHOLOGY (MULTIPLE) NORMAL APPEARANCE (NORMAL)
[2022-06-17] MEDS: MORPHINE 2 MG/ML CARPUJECT IVP PRN ×2 (07:10→16:16)
[2022-06-17] MEDS: SODIUM CHLORIDE FLUSH 0.9% 10 ML SYRINGE IVP PRN (07:10)
[2022-06-17] MEDS ORDERED: POTASSIUM CHLOR 10 MEQ/100 ML 10 MEQ/100 ML BAG IV SCH (08:00)
[2022-06-17] MEDS: ENOXAPARIN 40 MG/0.4 ML SYRINGE SUBQ SCH (09:48)
[2022-06-17] MEDS: cefTRIAXone 1 GM in SODIUM CHLORIDE 0.9% MINIBAG 100 ML IV SCH (09:48)
[2022-06-17] MEDS: SODIUM CHLORIDE FLUSH 0.9% 10 ML SYRINGE IVP SCH ×2 (09:49→15:22)
[2022-06-17] MEDS: POTASSIUM CHLOR 10 MEQ/100 ML 10 MEQ/100 ML BAG IV SCH ×3 (12:28→20:39)
[2022-06-17] MEDS: SODIUM CHLORIDE 0.9% 1,000 ML IV SCH (12:30)
--- NOTE | 2022-06-17 12:44 | PROVIDER PROGRESS NOTE ---
Subjective - Prog Note Date Prog Note Date: 06/17/22 Prog Note Time: 12:40 - Subjective Subjective: She is continuing to feel better today compared to when she was first admitted, but is still experiencing achiness and soreness in the epigastric region. She says the pain is worst in the right upper quadrant region. She feels her pain is being well-controlled with Morphine. Current Medications - Current Medications Current Medications: Active Medications Enoxaparin Sodium (Enoxaparin 40 Mg/0.4 Ml Syringe) 40 mg SUBQ DAILY [facility] Last Admin: 06/17/22 09:48 Dose: 40 mg Ceftriaxone Sodium 1 gm/ (Sodium Chloride) 100 mls @ 200 mls/hr IV DAILY [facility] Last Infusion: 06/17/22 10:35 Dose: Infused Sodium Chloride (Normal Saline 0.9%) 1,000 mls @ 60 mls/hr IV .[id number] [facility] Last Admin: 06/17/22 12:30 Dose: 60 mls/hr Potassium Chloride (Potassium Chloride) 10 meq in 100 mls @ 25 mls/hr IV Q1H [facility] Stop: 06/17/22 12:59 Last Admin: 06/17/22 12:28 Dose: 25 mls/hr Morphine Sulfate (Morphine 2 Mg/Ml Carpuject) 2 mg IVP Q2HR PRN PRN Reason: Pain 8 to 10 Last Admin: 06/17/22 07:10 Dose: 1 mg Ondansetron HCl (Ondansetron Odt 4 Mg Tablet) 4 mg TL Q6HR PRN PRN Reason: Nausea / Vomiting Ondansetron HCl (Ondansetron 4 Mg/2 Ml Vial) 4 mg IVP Q6HR PRN PRN Reason: Nausea / Vomiting Prochlorperazine Edisylate (Prochlorperazine 10 Mg/2 Ml Vial) 10 mg IVP Q6HR PRN PRN Reason: Nausea / Vomiting Sodium Chloride (Sodium Chloride Flush 0.9% 10 Ml Syringe) 10 ml IVP PRN PRN PRN Reason: NEEDED PER PROVIDER ORDERS Last Admin: 06/17/22 07:10 Dose: 10 ml Sodium Chloride (Sodium Chloride Flush 0.9% 10 Ml Syringe) 10 ml IVP 0100,0900,1700 [facility] Last Admin: 06/17/22 09:49 Dose: Not Given Levothyroxine [Synthroid] 75 mcg PO QDAC 06/15/22 Calcium Carbonate [Tums (Calcium Carbonate 500mg)] 1,000 mg PO BID PRN 06/16/22 Objective - Vital Signs/Intake & Output Reviewed Vital Signs: Yes Vital Signs: Vital Signs x48h Temp Pulse Resp BP Pulse Ox 06/17/22 07:20 36.9 C 106 H 18 131/58 H 96 Intake & Output: Intake & Output 06/14/22 06/15/22 06/16/22 06/17/22 23:59 23:59 23:59 23:59 Intake Total 8535.005 0287 1148.584 Output Total 650 300 Balance 0552.993 2641 848.584 - Objective General Appearance: positive: No acute distress, Alert Eyes Bilateral: positive: Normal inspection Neck: positive: Nml inspection Respiratory: positive: No respiratory distress, Breath sounds nml Cardiovascular: positive: Regular rate & rhythm Abdomen: positive: Tenderness (Tenderness with palpation of epigastric region, worse in the right upper quadrant). negative: No distention (Abdomen was distended on exam), Guarding, Rebound Skin: positive: Color nml, No rash, Warm Extremities: positive: Other (Varicose veins present on bilateral legs) Neurologic/Psychiatric: positive: Mood/affect nml - Lab Results Fish Bones: 06/17/22 04:15 06/17/22 04:15 Other Labs: Lab Results x24hrs 06/17/22 06/17/22 06/17/22 Range/Units 04:15 04:15 04:15 WBC 25.2 H (4.8-10.8) x10^3/uL RBC 4.44 (4.20-5.40) 10^6/uL Hgb 13.7 (12.0-16.0) g/dL Hct 42.1 (37.0-47.0) % MCV 94.8 (81.0-99.0) fL MCH 30.9 (27.0-31.0) pg MCHC 32.5 (32.0-36.0) g/dL RDW 15.4 H (12.0-15.0) % Plt Count 194 (130-450) 10^3/uL MPV 11.2 H (7.9-10.8) fL Neut # (Auto) Not Reportable Lymph # (Auto) Not Reportable [place] # (Auto) Not Reportable Eos # (Auto) Not Reportable Baso # (Auto) Not Reportable Absolute Nucleated RBC Not Reportable Total Counted 100 Band Neuts % (Manual) 21 H (0 - 10) % Abnorm Lymph % (Manual) 0 % Nucleated RBC % Not Reportable Neutrophils # (Manual) 23.2 H (1.5-6.6) 10^3/uL Lymphocytes # (Manual) 1.8 (1.5-3.5) 10^3/uL Monocytes # (Manual) 0.3 (0.0-1.0) 10^3/uL Eosinophils # (Manual) 0.0 (0-0.7) 10^3/uL Basophils # (Manual) 0.0 (0-0.1) 10^3/uL Differential Comment MANUAL DIFFERENTIAL Manual Slide Review Platelet Estimate NORMAL (130-450,000) (NORMAL) Platelet Morphology (NORMAL) RBC Morph Micro Appear NORMAL APPEARANCE (NORMAL) Sodium 141 (135-145) mmol/L Potassium 3.3 L (3.5-5.0) mmol/L Chloride 107 (101-111) mmol/L Carbon Dioxide 24 (21-32) mmol/L Anion Gap 10.0 (6-13) BUN 17 (6-20) mg/dL Creatinine 0.8 (0.4-1.0) mg/dL Estimated GFR (MDRD) 69 L (>89) Glucose 88 (70-100) mg/dL Calcium 8.5 (8.5-10.3) mg/dL Total Bilirubin 2.0 H (0.2-1.0) mg/dL AST 46 H (10-42) IU/L ALT 41 (10-60) IU/L Alkaline Phosphatase 62 (42-121) IU/L Lactate Dehydrogenase 169 (91-225) IU/L Total Protein 5.5 L (6.7-8.2) g/dL Albumin 2.7 L (3.2-5.5) g/dL Globulin 2.8 (2.1-4.2) g/dL Albumin/Globulin Ratio 1.0 (1.0-2.2) Lipase 816 H (22-51) U/L 06/16/22 06/16/22 Range/Units 12:29 12:29 WBC 24.8 H (4.8-10.8) x10^3/uL RBC 4.40 (4.20-5.40) 10^6/uL Hgb 13.5 (12.0-16.0) g/dL Hct 41.9 (37.0-47.0) % MCV 95.2 (81.0-99.0) fL MCH 30.7 (27.0-31.0) pg MCHC 32.2 (32.0-36.0) g/dL RDW 15.4 H (12.0-15.0) % Plt Count 206 (130-450) 10^3/uL MPV 10.2 (7.9-10.8) fL Neut # (Auto) Not Reportable Lymph # (Auto) Not Reportable [place] # (Auto) Not Reportable Eos # (Auto) Not Reportable Baso # (Auto) Not Reportable Absolute Nucleated RBC Not Reportable Total Counted 100 Band Neuts % (Manual) 20 H (0 - 10) % Abnorm Lymph % (Manual) 0 % Nucleated RBC % Not Reportable Neutrophils # (Manual) 23.1 H (1.5-6.6) 10^3/uL Lymphocytes # (Manual) 1.2 L (1.5-3.5) 10^3/uL Monocytes # (Manual) 0.5 (0.0-1.0) 10^3/uL Eosinophils # (Manual) 0.0 (0-0.7) 10^3/uL Basophils # (Manual) 0.0 (0-0.1) 10^3/uL Differential Comment MANUAL DIFFERENTIAL Manual Slide Review Indicated Platelet Estimate NORMAL (130-450,000) (NORMAL) Platelet Morphology NORMAL APPEARANCE (NORMAL) RBC Morph Micro Appear NORMAL APPEARANCE (NORMAL) Sodium 138 (135-145) mmol/L Potassium 4.2 (3.5-5.0) mmol/L Chloride 107 (101-111) mmol/L Carbon Dioxide 23 (21-32) mmol/L Anion Gap 8.0 (6-13) BUN 13 (6-20) mg/dL Creatinine 0.8 (0.4-1.0) mg/dL Estimated GFR (MDRD) 69 L (>89) Glucose 106 H (70-100) mg/dL Calcium 8.5 (8.5-10.3) mg/dL Total Bilirubin 2.8 H (0.2-1.0) mg/dL AST 55 H (10-42) IU/L ALT 43 (10-60) IU/L Alkaline Phosphatase 49 (42-121) IU/L Lactate Dehydrogenase (91-225) IU/L Total Protein 5.9 L (6.7-8.2) g/dL Albumin 2.8 L (3.2-5.5) g/dL Globulin 3.1 (2.1-4.2) g/dL Albumin/Globulin Ratio 0.9 L (1.0-2.2) Lipase 1500 H (22-51) U/L ABX Reporting Has patient been on IV antibiotics over the past 48 hours?: Yes Assessment/Plan - Problem List (1) Bacteremia, escherichia coli Impression: Blood cultures drawn on 06/15 came back positive for E. coli. She is being treated with IV Ceftriaxone 1g daily. Her WBC was 25.2 today, but she has not had a fever while in the hospital. We will continue to monitor her labs and vitals, and obtain repeat blood cultures today. (2) Acute pancreatitis Impression: Her pain is continuing to improve with Morphine. She is experiencing epigastric discomfort worse in the right upper quadrant. Lipase checked today was 816, which is lower than the lipase on admission which was 1500. We will obtain repeat lipase tomorrow. We will continue to treat pain with Morphine, give IV fluids, and keep her NPO until her pain has improved and lipase levels have decreased. Qualifiers: Acute pancreatitis complication: no infection or necrosis
[2022-06-17] MEDS: MEROPENEM 1 GM in SODIUM CHLORIDE 0.9% MINIBAG 100 ML IV SCH (19:26)
[2022-06-18] MEDS: SODIUM CHLORIDE FLUSH 0.9% 10 ML SYRINGE IVP SCH ×3 (00:24→16:16)
[2022-06-18] MEDS: ACETAMINOPHEN 325 MG TABLET PO PRN (00:29)
[2022-06-18] MEDS: MEROPENEM 1 GM in SODIUM CHLORIDE 0.9% MINIBAG 100 ML IV SCH ×2 (02:25→12:54)
[2022-06-18 04:51] LABS: BASOPHILS % (AUTO) 0.3 %; EOSINOPHILS % (AUTO) 0.6 %; HCT - HEMATOCRIT 36.6 % (37.0-47.0); LYMPHOCYTES % (AUTO) 8.2 %; MEAN CORPUSCULAR HEMOGLOBIN 30.4 pg (27.0-31.0); MEAN CORPUSCULAR HGB CONC 32.8 g/dL (32.0-36.0); MEAN CORPUSCULAR VOLUME 92.7 fL (81.0-99.0); MEAN PLATELET VOLUME 10.7 fL (7.9-10.8); MONOCYTES % (AUTO) 4.4 %; NEUTROPHILS % (AUTO) 85.5 %; PLT - PLATELET COUNT 194 10^3/uL (130-450); RED BLOOD COUNT 3.95 10^6/uL (4.20-5.40); RED CELL DISTRIBUTION WIDTH 15.2 % (12.0-15.0); WHITE BLOOD COUNT 20.4 x10^3/uL (4.8-10.8)
[2022-06-18 04:55] LABS: ABNORMAL LYMPHS % (MANUAL) 0 %
[2022-06-18 05:05] LABS: ALBUMIN 2.5 g/dL (3.2-5.5); ALBUMIN/GLOBULIN RATIO 0.8 (1.0-2.2); BILIRUBIN,TOTAL 1.5 mg/dL (0.2-1.0); CREATININE 0.6 mg/dL (0.4-1.0); POTASSIUM 3.4 mmol/L (3.5-5.0); TOTAL PROTEIN 5.5 g/dL (6.7-8.2)
[2022-06-18] MEDS: SODIUM CHLORIDE 0.9% 1,000 ML IV SCH (05:43)
[2022-06-18 05:57] LABS: BAND NEUTROPHILS % (MANUAL) 8 %; DIFFERENTIAL COMMENT MANUAL DIFFERENTIAL; LYMPHOCYTES # (MANUAL) 1.2 10^3/uL (1.5-3.5); LYMPHOCYTES % (MANUAL) 6 %; MONOCYTES # (MANUAL) 0.4 10^3/uL (0.0-1.0); MYELOCYTES % (MANUAL) 1 %; NEUTROPHILS # (MANUAL) 18.6 10^3/uL (1.5-6.6); PLATELET ESTIMATE, MANUAL NORMAL (130-450,000) (NORMAL); RBC MORPHOLOGY (MULTIPLE) NORMAL APPEARANCE (NORMAL)
[2022-06-18] MEDS: ENOXAPARIN 40 MG/0.4 ML SYRINGE SUBQ SCH (09:24)
[2022-06-18] MEDS: POTASSIUM CHLOR 10 MEQ/100 ML 10 MEQ/100 ML BAG IV SCH ×4 (09:24→21:12)
[2022-06-18] MEDS: MORPHINE 2 MG/ML CARPUJECT IVP PRN ×2 (12:41→17:16)
[2022-06-18] MEDS: SODIUM CHLORIDE FLUSH 0.9% 10 ML SYRINGE IVP PRN (12:42)
[2022-06-18] MEDS: CALCIUM CARBONATE CHEW 500 MG TABLET PO SCH ×2 (14:35→21:36)
--- NOTE | 2022-06-18 16:24 | PROVIDER PROGRESS NOTE ---
Subjective - Prog Note Date Prog Note Date: 06/18/22 Prog Note Time: 16:19 - Subjective Subjective: Ms. William stated that when she woke up today she was feeling much better. She started a clear liquids diet with lunch and says she tried eating her broth and jello, but was unable to finish them because of the taste of the foods and that she then developed epigastric discomfort after eating. She now mostly had tenderness in the epigastric region. She was able to get up and take a shower this morning. She did not get any morphine last night, but did get some morphine after developing the epigastric tenderness after lunch time. Current Medications - Current Medications Current Medications: Active Medications Acetaminophen (Acetaminophen 325 Mg Tablet) 650 mg PO Q4HR PRN PRN Reason: HEADACHE Last Admin: 06/18/22 00:29 Dose: 650 mg Calcium Carbonate/Glycine (Calcium Carbonate Chew 500 Mg Tablet) 500 mg PO BID [facility] Last Admin: 06/18/22 14:35 Dose: 500 mg Enoxaparin Sodium (Enoxaparin 40 Mg/0.4 Ml Syringe) 40 mg SUBQ DAILY [facility] Last Admin: 06/18/22 09:24 Dose: 40 mg Sodium Chloride (Normal Saline 0.9%) 1,000 mls @ 60 mls/hr IV .[id number] [facility] Last Admin: 06/18/22 05:43 Dose: 60 mls/hr Levofloxacin (Levofloxacin 250 Mg Tablet) 750 mg PO Q24H [facility] Metronidazole (Metronidazole 250 Mg Tablet) 500 mg PO TIDWM [facility] Morphine Sulfate (Morphine 2 Mg/Ml Carpuject) 2 mg IVP Q2HR PRN PRN Reason: Pain 8 to 10 Last Admin: 06/18/22 17:16 Dose: 1 mg Ondansetron HCl (Ondansetron Odt 4 Mg Tablet) 4 mg TL Q6HR PRN PRN Reason: Nausea / Vomiting Ondansetron HCl (Ondansetron 4 Mg/2 Ml Vial) 4 mg IVP Q6HR PRN PRN Reason: Nausea / Vomiting Prochlorperazine Edisylate (Prochlorperazine 10 Mg/2 Ml Vial) 10 mg IVP Q6HR PRN PRN Reason: Nausea / Vomiting Sodium Chloride (Sodium Chloride Flush 0.9% 10 Ml Syringe) 10 ml IVP PRN PRN PRN Reason: NEEDED PER PROVIDER ORDERS Last Admin: 06/18/22 12:42 Dose: 10 ml Sodium Chloride (Sodium Chloride Flush 0.9% 10 Ml Syringe) 10 ml IVP 0100,0900,1700 [facility] Last Admin: 06/18/22 16:16 Dose: 10 ml Levothyroxine [Synthroid] 75 mcg PO QDAC 06/15/22 Calcium Carbonate [Tums (Calcium Carbonate 500mg)] 1,000 mg PO BID PRN 06/16/22 Objective - Vital Signs/Intake & Output Reviewed Vital Signs: Yes Vital Signs: Vital Signs x48h Temp Pulse Resp BP Pulse Ox 06/18/22 16:00 36.4 C L 86 16 142/71 H 99 Intake & Output: Intake & Output 06/15/22 06/16/22 06/17/22 06/18/22 23:59 23:59 23:59 23:59 Intake Total 2352.797 1910 8312.703 2646.667 Output Total 650 700 450 Balance 2795.267 7075 1164.834 821.667 - Objective General Appearance: positive: Alert, Mild distress (She was experiencing abdomi nal discomfort after trial of clear liquids) Eyes Bilateral: positive: Normal inspection Neck: positive: Nml inspection, No JVD. negative: Stiff neck Respiratory: positive: No respiratory distress, Breath sounds nml Cardiovascular: positive: Regular rate & rhythm Abdomen: positive: Tenderness (Epigastric tenderness with palpation), Abnml bowel sounds (Hypoactive bowel sounds). negative: No distention (Mild distention) Skin: positive: Color nml, No rash, Warm, Dry Neurologic/Psychiatric: positive: Mood/affect nml - Lab Results Fish Bones: 06/18/22 04:17 06/18/22 04:17 Other Labs: Lab Results x24hrs 06/18/22 06/18/22 Range/Units 04:17 04:17 WBC 20.4 H (4.8-10.8) x10^3/uL RBC 3.95 L (4.20-5.40) 10^6/uL Hgb 12.0 (12.0-16.0) g/dL Hct 36.6 L (37.0-47.0) % MCV 92.7 (81.0-99.0) fL MCH 30.4 (27.0-31.0) pg MCHC 32.8 (32.0-36.0) g/dL RDW 15.2 H (12.0-15.0) % Plt Count 194 (130-450) 10^3/uL MPV 10.7 (7.9-10.8) fL Neut # (Auto) Not Reportable Lymph # (Auto) Not Reportable [place] # (Auto) Not Reportable Eos # (Auto) Not Reportable Baso # (Auto) Not Reportable Absolute Nucleated RBC Not Reportable Total Counted 100 Band Neuts % (Manual) 8 (0 - 10) % Abnorm Lymph % (Manual) 0 % Myelocytes % 1 H ( - 0) % Nucleated RBC % Not Reportable Neutrophils # (Manual) 18.6 H (1.5-6.6) 10^3/uL Lymphocytes # (Manual) 1.2 L (1.5-3.5) 10^3/uL Monocytes # (Manual) 0.4 (0.0-1.0) 10^3/uL Eosinophils # (Manual) 0.0 (0-0.7) 10^3/uL Basophils # (Manual) 0.0 (0-0.1) 10^3/uL Differential Comment MANUAL DIFFERENTIAL Platelet Estimate NORMAL (130-450,000) (NORMAL) RBC Morph Micro Appear NORMAL APPEARANCE (NORMAL) Sodium 136 (135-145) mmol/L Potassium 3.4 L (3.5-5.0) mmol/L Chloride 107 (101-111) mmol/L Carbon Dioxide 20 L (21-32) mmol/L Anion Gap 9.0 (6-13) BUN 16 (6-20) mg/dL Creatinine 0.6 (0.4-1.0) mg/dL Estimated GFR (MDRD) 97 (>89) Glucose 85 (70-100) mg/dL Calcium 8.0 L (8.5-10.3) mg/dL Total Bilirubin 1.5 H (0.2-1.0) mg/dL AST 29 (10-42) IU/L ALT 29 (10-60) IU/L Alkaline Phosphatase 81 (42-121) IU/L Total Protein 5.5 L (6.7-8.2) g/dL Albumin 2.5 L (3.2-5.5) g/dL Globulin 3.0 (2.1-4.2) g/dL Albumin/Globulin Ratio 0.8 L (1.0-2.2) Lipase 123 H (22-51) U/L ABX Reporting Has patient been on IV antibiotics over the past 48 hours?: Yes Assessment/Plan - Problem List (1) Bacteremia, escherichia coli Impression: On 06/17, Ms. Cuevass temperature was elevated at 38.1 and she developed chills. We switched her antibiotics to IV Meropenem. She received two doses of the antibiotic today, however, we will need to switch her to oral antibiotics upon discharge. We are starting her on a combination of oral levaquin and metronidazole for 10 days. However, her chart has an allergy to metronidazole listed. When we asked her about his allergy, she says she took the medication for a vaginal infection in her 20s. She took a dose of metronidazole and then went to work where a doctor who worked in her building then stated she should go to the hospital because they were concerned about a brain aneurysm due to the presentation of her eyes. She had a work up at the hospital and was unable to work for one month after that. She did not have anaphylaxis with the Metronidazole. The hospital work up is likely unrelated to the Metronidazole. (2) Acute pancreatitis Impression: She stated that she woke up this morning feeling much better and was able to get up to shower. However at lunch time, she attempted a trial of clear liquids diet and developed epigastric tenderness. We will stop the clear liquids diet and continue NPO with ice chips and popsicles. She had two bowel movements yesterday and one bowel movement today. We gave her some sprite today as this has helped with her abdominal paini in the psat, and she says she is able to burp more after drinking it. Her lipase today is 123. We will continue to monitor her pain and lipase levels before trialing clear liquids again. Qualifiers: Acute pancreatitis complication: no infection or necrosis
[2022-06-18] MEDS: levoFLOXacin 250 MG TABLET PO SCH (18:01)
[2022-06-18] MEDS: metroNIDAZOLE 250 MG TABLET PO SCH (18:01)
[2022-06-18] MEDS: ONDANSETRON 4 MG/2 ML VIAL IVP PRN (20:39)
[2022-06-19] MEDS: SODIUM CHLORIDE 0.9% 1,000 ML IV SCH ×2 (00:53→17:58)
[2022-06-19] MEDS: SODIUM CHLORIDE FLUSH 0.9% 10 ML SYRINGE IVP SCH ×3 (01:53→17:07)
[2022-06-19 05:52] LABS: BASOPHILS % (AUTO) 0.8 %; EOSINOPHILS % (AUTO) 1.2 %; HCT - HEMATOCRIT 35.4 % (37.0-47.0); HGB - HEMOGLOBIN 11.8 g/dL (12.0-16.0); MEAN CORPUSCULAR HEMOGLOBIN 30.3 pg (27.0-31.0); MEAN CORPUSCULAR HGB CONC 33.3 g/dL (32.0-36.0); MEAN PLATELET VOLUME 10.5 fL (7.9-10.8); NEUTROPHILS % (AUTO) 76.4 %; PLT - PLATELET COUNT 214 10^3/uL (130-450); RED BLOOD COUNT 3.89 10^6/uL (4.20-5.40); WHITE BLOOD COUNT 20.5 x10^3/uL (4.8-10.8)
[2022-06-19 05:58] LABS: ABNORMAL LYMPHS % (MANUAL) 0 %
[2022-06-19 06:12] LABS: ALBUMIN 2.4 g/dL (3.2-5.5); ALBUMIN/GLOBULIN RATIO 0.8 (1.0-2.2); BAND NEUTROPHILS % (MANUAL) 2 %; BILIRUBIN,TOTAL 1.3 mg/dL (0.2-1.0); CALCIUM 8.1 mg/dL (8.5-10.3); CREATININE 0.6 mg/dL (0.4-1.0); CRP - C-REACTIVE PROTEIN 16.9 mg/dL (0-1.0); LYMPHOCYTES # (MANUAL) 1.8 10^3/uL (1.5-3.5); LYMPHOCYTES % (MANUAL) 9 %; MONOCYTES # (MANUAL) 2.3 10^3/uL (0.0-1.0); MYELOCYTES % (MANUAL) 1 %; NEUTROPHILS # (MANUAL) 16.2 10^3/uL (1.5-6.6); PLATELET MORPHOLOGY NORMAL APPEARANCE (NORMAL); POTASSIUM 3.6 mmol/L (3.5-5.0); RBC MORPHOLOGY (MULTIPLE) NORMAL APPEARANCE (NORMAL); TOTAL PROTEIN 5.6 g/dL (6.7-8.2)
[2022-06-19 06:13] LABS: DIFFERENTIAL COMMENT MANUAL DIFFERENTIAL; PLATELET ESTIMATE, MANUAL NORMAL (130-450,000) (NORMAL); WBC MORPHOLOGY (MULTIPLE) NORMAL APPEARANCE (NORMAL)
[2022-06-19] MEDS: CALCIUM CARBONATE CHEW 500 MG TABLET PO SCH ×2 (08:04→20:53)
[2022-06-19] MEDS: ENOXAPARIN 40 MG/0.4 ML SYRINGE SUBQ SCH (08:04)
[2022-06-19] MEDS: ONDANSETRON 4 MG/2 ML VIAL IVP PRN (08:04)
[2022-06-19] MEDS: metroNIDAZOLE 250 MG TABLET PO SCH ×3 (08:04→17:07)
--- NOTE | 2022-06-19 10:21 | PROVIDER PROGRESS NOTE ---
Subjective - Prog Note Date Prog Note Date: 06/19/22 Prog Note Time: 10:18 - Subjective Subjective: She says she had trouble sleeping and getting comfortable last night due to a burning sensation in the epigastric region that started after she trialed clear liquids yesterday. She was unable to eat the clear liquids brought to her last night and could not tolerate the popsicle last night due to the sweetness. She has been taking Tums for the burning sensation which has helped. Current Medications - Current Medications Current Medications: Active Medications Acetaminophen (Acetaminophen 325 Mg Tablet) 650 mg PO Q4HR PRN PRN Reason: HEADACHE Last Admin: 06/18/22 00:29 Dose: 650 mg Calcium Carbonate/Glycine (Calcium Carbonate Chew 500 Mg Tablet) 500 mg PO BID [facility] Last Admin: 06/19/22 08:04 Dose: 500 mg Enoxaparin Sodium (Enoxaparin 40 Mg/0.4 Ml Syringe) 40 mg SUBQ DAILY [facility] Last Admin: 06/19/22 08:04 Dose: 40 mg Sodium Chloride (Normal Saline 0.9%) 1,000 mls @ 60 mls/hr IV .[id number] [facility] Last Admin: 06/19/22 00:53 Dose: 60 mls/hr Levofloxacin (Levofloxacin 250 Mg Tablet) 750 mg PO Q24H [facility] Last Admin: 06/18/22 18:01 Dose: 750 mg Metronidazole (Metronidazole 250 Mg Tablet) 500 mg PO TIDWM [facility] Last Admin: 06/19/22 08:04 Dose: 500 mg Morphine Sulfate (Morphine 2 Mg/Ml Carpuject) 2 mg IVP Q2HR PRN PRN Reason: Pain 8 to 10 Last Admin: 06/18/22 17:16 Dose: 1 mg Ondansetron HCl (Ondansetron Odt 4 Mg Tablet) 4 mg TL Q6HR PRN PRN Reason: Nausea / Vomiting Ondansetron HCl (Ondansetron 4 Mg/2 Ml Vial) 4 mg IVP Q6HR PRN PRN Reason: Nausea / Vomiting Last Admin: 06/19/22 08:04 Dose: 4 mg Prochlorperazine Edisylate (Prochlorperazine 10 Mg/2 Ml Vial) 10 mg IVP Q6HR PRN PRN Reason: Nausea / Vomiting Sodium Chloride (Sodium Chloride Flush 0.9% 10 Ml Syringe) 10 ml IVP PRN PRN PRN Reason: NEEDED PER PROVIDER ORDERS Last Admin: 06/18/22 12:42 Dose: 10 ml Sodium Chloride (Sodium Chloride Flush 0.9% 10 Ml Syringe) 10 ml IVP 0100,0900,1700 [facility] Last Admin: 06/19/22 08:04 Dose: Not Given Levothyroxine [Synthroid] 75 mcg PO QDAC 06/15/22 Calcium Carbonate [Tums (Calcium Carbonate 500mg)] 1,000 mg PO BID PRN 06/16/22 Objective - Vital Signs/Intake & Output Reviewed Vital Signs: Yes Vital Signs: Vital Signs x48h Temp Pulse Resp BP Pulse Ox 06/19/22 07:22 37.1 C 76 16 144/73 H 95 Intake & Output: Intake & Output 06/16/22 06/17/22 06/18/22 06/19/22 23:59 23:59 23:59 23:59 Intake Total 4361 5441.701 9515.667 340 Output Total 650 700 750 Balance 3711 9376.141 7397.667 340 - Objective General Appearance: positive: No acute distress, Alert Eyes Bilateral: positive: Normal inspection Neck: positive: Nml inspection. negative: Stiff neck Respiratory: positive: No respiratory distress, Breath sounds nml Cardiovascular: positive: Regular rate & rhythm Abdomen: positive: Nml bowel sounds, Tenderness (Tenderness with palpation of right umbilical region), Rebound. negative: No distention (Mild distention), Guarding Skin: positive: Color nml, No rash, Warm, Dry Neurologic/Psychiatric: positive: Mood/affect nml - Lab Results Fish Bones: 06/19/22 05:09 06/19/22 05:09 Other Labs: Lab Results x24hrs 06/19/22 06/19/22 06/19/22 Range/Units 09:12 05:09 05:09 WBC 20.5 H (4.8-10.8) x10^3/uL RBC 3.89 L (4.20-5.40) 10^6/uL Hgb 11.8 L (12.0-16.0) g/dL Hct 35.4 L (37.0-47.0) % MCV 91.0 (81.0-99.0) fL MCH 30.3 (27.0-31.0) pg MCHC 33.3 (32.0-36.0) g/dL RDW 15.0 (12.0-15.0) % Plt Count 214 (130-450) 10^3/uL MPV 10.5 (7.9-10.8) fL Neut # (Auto) Not Reportable Lymph # (Auto) Not Reportable [place] # (Auto) Not Reportable Eos # (Auto) Not Reportable Baso # (Auto) Not Reportable Absolute Nucleated RBC Not Reportable Total Counted 100 Band Neuts % (Manual) 2 (0 - 10) % Abnorm Lymph % (Manual) 0 % Myelocytes % 1 H ( - 0) % Nucleated RBC % Not Reportable Neutrophils # (Manual) 16.2 H (1.5-6.6) 10^3/uL Lymphocytes # (Manual) 1.8 (1.5-3.5) 10^3/uL Monocytes # (Manual) 2.3 H (0.0-1.0) 10^3/uL Eosinophils # (Manual) 0.0 (0-0.7) 10^3/uL Basophils # (Manual) 0.0 (0-0.1) 10^3/uL Differential Comment MANUAL DIFFERENTIAL WBC Morphology NORMAL APPEARANCE (NORMAL) Platelet Estimate NORMAL (130-450,000) (NORMAL) Platelet Morphology NORMAL APPEARANCE (NORMAL) RBC Morph Micro Appear NORMAL APPEARANCE (NORMAL) Sodium 136 (135-145) mmol/L Potassium 3.6 (3.5-5.0) mmol/L Chloride 107 (101-111) mmol/L Carbon Dioxide 21 (21-32) mmol/L Anion Gap 8.0 (6-13) BUN 13 (6-20) mg/dL Creatinine 0.6 (0.4-1.0) mg/dL Estimated GFR (MDRD) 97 (>89) Glucose 84 (70-100) mg/dL Calcium 8.1 L (8.5-10.3) mg/dL Total Bilirubin 1.3 H (0.2-1.0) mg/dL AST 28 (10-42) IU/L ALT 26 (10-60) IU/L Alkaline Phosphatase 86 (42-121) IU/L C-Reactive Protein 16.9 H (0-1.0) mg/dL Total Protein 5.6 L (6.7-8.2) g/dL Albumin 2.4 L (3.2-5.5) g/dL Globulin 3.2 (2.1-4.2) g/dL Albumin/Globulin Ratio 0.8 L (1.0-2.2) Lipase 69 H (22-51) U/L Procalcitonin 8.61 H* (<0.5) ng/mL ABX Reporting Has patient been on IV antibiotics over the past 48 hours?: Yes Assessment/Plan - Problem List (1) Bacteremia, escherichia coli Impression: We started her on oral antibiotics to prepare her for home discharge. She continues not to be tachycardic and has not had fevers. Repeat blood cultures on 06/17 came back negative. Her WBC today is 20.5 and remains elevated. We will continue to monitor her WBC and temperature. If she develops fevers again or continued increased WBC, we will obtain another CT of the abdomen and reconsider IV antibiotics. She is being treated with Levaquin 750mg once daily and Metronidazole 500mg three times daily. Today is day 2 of oral antibiotics for a total of 10 days of treatment. (2) Acute pancreatitis Impression: Her lipase has decreased to 69 and she is continuing to appear much more improved compared to day of admission. She was sitting up in her chair today when we spoke with her. She is continuing to not tolerate clear liquids due to developing reflux and burning sensation in her epigastric region. She took Tums which helped, but she is still having the burning, so we will give her Maalox. She can continue ice chips and water, she does not want to continue popsicles due to the sugar content, and we will continue to monitor her labs and progression of symptoms over the next few days before considering PPN for nutrition. Qualifiers: Acute pancreatitis complication: no infection or necrosis
[2022-06-19] MEDS: MAG HYDROX/AL HYDROX/SIMETH 30 ML UDC PO PRN (16:57)
[2022-06-19] MEDS: levoFLOXacin 250 MG TABLET PO SCH (19:55)
[2022-06-20] MEDS: SODIUM CHLORIDE FLUSH 0.9% 10 ML SYRINGE IVP SCH ×3 (01:46→16:55)
[2022-06-20] MEDS: MAG HYDROX/AL HYDROX/SIMETH 30 ML UDC PO PRN ×4 (04:22→23:46)
[2022-06-20 05:08] LABS: BASOPHILS % (AUTO) 0.2 %; EOSINOPHILS % (AUTO) 2.2 %; HCT - HEMATOCRIT 33.6 % (37.0-47.0); HGB - HEMOGLOBIN 11.2 g/dL (12.0-16.0); LYMPHOCYTES % (AUTO) 10.3 %; MEAN CORPUSCULAR HEMOGLOBIN 30.6 pg (27.0-31.0); MEAN CORPUSCULAR HGB CONC 33.3 g/dL (32.0-36.0); MEAN CORPUSCULAR VOLUME 91.8 fL (81.0-99.0); MEAN PLATELET VOLUME 10.4 fL (7.9-10.8); MONOCYTES % (AUTO) 9.4 %; NEUTROPHILS % (AUTO) 65.2 %; PLT - PLATELET COUNT 215 10^3/uL (130-450); RED BLOOD COUNT 3.66 10^6/uL (4.20-5.40); RED CELL DISTRIBUTION WIDTH 15.2 % (12.0-15.0); WHITE BLOOD COUNT 18.7 x10^3/uL (4.8-10.8)
[2022-06-20 05:11] LABS: ABNORMAL LYMPHS % (MANUAL) 0 %
[2022-06-20 05:34] LABS: BAND NEUTROPHILS % (MANUAL) 2 %; EOSINOPHILS # (MANUAL) 0.2 10^3/uL (0-0.7); LYMPHOCYTES # (MANUAL) 1.7 10^3/uL (1.5-3.5); LYMPHOCYTES % (MANUAL) 9 %; METAMYELOCYTES % (MANUAL) 4 %; MONOCYTES # (MANUAL) 0.9 10^3/uL (0.0-1.0); MYELOCYTES % (MANUAL) 3 %; NEUTROPHILS # (MANUAL) 14.6 10^3/uL (1.5-6.6); RBC MORPHOLOGY (MULTIPLE) 1+ HYPOCHROMASIA (NORMAL)
[2022-06-20 05:35] LABS: ALBUMIN 2.4 g/dL (3.2-5.5); ALBUMIN/GLOBULIN RATIO 0.9 (1.0-2.2); CREATININE 0.7 mg/dL (0.4-1.0); CRP - C-REACTIVE PROTEIN 12.9 mg/dL (0-1.0); DIFFERENTIAL COMMENT MANUAL DIFFERENTIAL; PLATELET ESTIMATE, MANUAL NORMAL (130-450,000) (NORMAL); PLATELET MORPHOLOGY NORMAL APPEARANCE (NORMAL); POTASSIUM 3.3 mmol/L (3.5-5.0); TOTAL PROTEIN 5.1 g/dL (6.7-8.2); WBC MORPHOLOGY (MULTIPLE) NORMAL APPEARANCE (NORMAL)
[2022-06-20] MEDS: metroNIDAZOLE 250 MG TABLET PO SCH ×3 (08:08→16:55)
[2022-06-20] MEDS: ENOXAPARIN 40 MG/0.4 ML SYRINGE SUBQ SCH (08:08)
[2022-06-20] MEDS: CALCIUM CARBONATE CHEW 500 MG TABLET PO SCH ×2 (08:09→21:33)
[2022-06-20] MEDS: POTASSIUM CHLOR 10 MEQ/100 ML 10 MEQ/100 ML BAG IV SCH ×2 (11:22→14:52)
[2022-06-20] MEDS: ONDANSETRON 4 MG/2 ML VIAL IVP PRN (11:46)
[2022-06-20] MEDS ORDERED: POTASSIUM CHLORIDE 10 MEQ CAPSULE PO ONE (12:30)
--- NOTE | 2022-06-20 13:21 | PROVIDER PROGRESS NOTE ---
Assessment/Plan - Problem List (1) Diarrhea Assessment/Plan: This is a new problem for her. She denied any fever, abdominal pain, blood in the stool. Etiology could be her COVID and Influenza A recent infections. Also her said that he had sudden watery diarrhea about a month ago and she cleaned up after him. Will order stool for culture. Continue with IV fluids. She is not yet ready for discharge. (2) E coli bacteremia Impression: Cause is still unclear. She was on iv antibx and we started her on oral antibiotics to prepare her for home discharge. She continues not to be tachycardic and has not had fevers. Repeat blood cultures on 06/17 came back negative. Her WBC today is 18.7, only slightly improved from 20.5. Procalcitonin has decreased from 8 down to 4 today. We will continue to monitor her WBC and temperature. If she develops fevers again or continued increased WBC, we will obtain another CT of the abdomen and reconsider IV antibiotics. She is being treated with Levaquin 750mg once daily and Metronidazole 500mg three times daily. Today is day 3 of oral antibiotics for a total of 10 days of treatment. (3) Acute pancreatitis Impression: Cause is still unclear. Her lipase has improved compared to day of admission. She was sitting up in her chair today when we spoke with her. She is now tolerating clear liquids, but needs pre-medication with iv anti-emetics and Maalox for reflux and burning se nsation in her epigastric region. If she is tolerating clear liquids, will slowly advance to pured diet but only giving applesauce and mashed potatoes, which she has an appetite for Continue to monitor her labs and progression of symptoms over the next few days before considering PPN for nutrition. Qualifiers: Acute pancreatitis complication: no infection or necrosis (4) Hypokalemia mpression: This is likely from inadequate intake and now could also be from diarrhea. Will replace with K riders IV and try p.o. replacement. Follow BMP daily (5) Hypothyroidism Impression: As I was leaving the room, she asked why she is not getting her Levothyroxine medication. Will order her home meds - Current Meds Current Meds: Current Medications Generic Name Dose Route Start Last Admin Trade Name Freq PRN Reason Stop Dose Admin Acetaminophen 650 mg 06/17/22 20:41 06/18/22 00:29 Acetaminophen 325 Mg Tablet PO 650 mg Q4HR PRN Administration HEADACHE Al Hydroxide/Mg Hydroxide 30 ml 06/19/22 15:38 06/20/22 12:16 Mag Hydrox/Al Hydrox/Simeth 30 Ml Udc PO 30 ml Q4HR PRN Administration INDIGESTION Calcium Carbonate/Glycine 500 mg 06/18/22 14:28 06/20/22 08:09 Calcium Carbonate Chew 500 Mg Tablet PO 500 mg BID MARCOS Administration Enoxaparin Sodium 40 mg 06/16/22 09:00 06/20/22 08:08 Enoxaparin 40 Mg/0.4 Ml Syringe SUBQ 40 mg DAILY MARCOS Administration Sodium Chloride 1,000 mls @ 60 mls/hr 06/16/22 18:00 06/19/22 17:58 Normal Saline 0.9% IV 60 mls/hr .[id number] MARCOS Administration Potassium Chloride 10 meq in 100 mls @ 100 mls/hr 06/20/22 11:00 06/20/22 11:46 Potassium Chloride IV 06/20/22 13:59 20 mls/hr Q1H MARCOS Infusion Levofloxacin 750 mg 06/18/22 19:00 06/19/22 19:55 Levofloxacin 250 Mg Tablet PO 750 mg Q24H MRACOS Administration Metronidazole 500 mg 06/18/22 18:00 06/20/22 12:16 Metronidazole 250 Mg Tablet PO 500 mg TIDWM MARCOS Administration Morphine Sulfate 2 mg 06/15/22 14:31 06/18/22 17:16 Morphine 2 Mg/Ml Carpuject IVP 1 mg Q2HR PRN Administration Pain 8 to 10 Ondansetron HCl 4 mg 06/15/22 14:31 06/19/22 16:54 Ondansetron Odt 4 Mg Tablet TL 4 mg Q6HR PRN Administration Nausea / Vomiting Ondansetron HCl 4 mg 06/15/22 14:31 06/20/22 11:46 Ondansetron 4 Mg/2 Ml Vial IVP 4 mg Q6HR PRN Administration Nausea / Vomiting Sodium Chloride 10 ml 06/15/22 14:31 06/18/22 12:42 Sodium Chloride Flush 0.9% 10 Ml Syringe IVP 10 ml PRN PRN Administration NEEDED PER PROVIDER ORDERS Sodium Chloride 10 ml 06/15/22 17:00 06/20/22 08:08 Sodium Chloride Flush 0.9% 10 Ml Syringe IVP 10 ml 0100,0900,1700 [facility] Administration - Lab Result Fish Bone Diagrams: 06/20/22 04:16 06/20/22 04:16 - Additional Planning My Orders: My Active Orders 06/20/22 11:00 Potassium Chlor 10 Meq/100 ml [Potassium Chloride] 10 meq in 100 ml IV Q1H 06/20/22 16:00 POTASSIUM [CHEM] Timed 06/20/22 Dinner DIET [Dysphagia - Puree] [DIET] Subjective - Subjective Patient Reports: Feeling Better (She still needs antinausea meds by IV, to take in her clear liquid diet. She had new diarrhea today that was not painful but very liquidy and very large..) Objective Vital Signs: Vital Signs - 24 hr 06/19/22 06/20/22 06/20/22 15:35 00:00 07:36 Temperature 36.3 C L 37 C 37.1 C Heart Rate [ 93 87 92 Brachial] Respiratory 16 14 16 Rate Blood Pressure 132/61 H 125/82 H 129/72 [Right Brachial artery] O2 Saturation 96 95 95 Oxygen O2 Source Room air I&O (Last 24 Hrs): Intake and Output Totals x24h 06/18/22 06/19/22 06/20/22 23:59 23:59 23:59 Intake Total 2691.667 2120 760 Output Total 750 350 Balance 1049.540 7627 410 General: Alert, Oriented x3 HEENT: EOMI, Mucous membr. moist/pink Neck: Supple, No JVD Neuro: Alert, Non Focal Cardiovascular: Regular rate, No murmurs Respiratory: No respiratory distress, Breath sounds nml Abdomen: Soft, No tenderness, Other (Hyperactive bowel sounds in left lower quadrant) Extremities: No clubbing, No edema Skin: No rashes - Results Results: Laboratory Results WBC 18.7 x10^3/uL (4.8-10.8) H 06/20/22 04:16 RBC 3.66 10^6/uL (4.20-5.40) L 06/20/22 04:16 Hgb 11.2 g/dL (12.0-16.0) L 06/20/22 04:16 Hct 33.6 % (37.0-47.0) L 06/20/22 04:16 MCV 91.8 fL (81.0-99.0) 06/20/22 04:16 MCH 30.6 pg (27.0-31.0) 06/20/22 04:16 MCHC 33.3 g/dL (32.0-36.0) 06/20/22 04:16 RDW 15.2 % (12.0-15.0) H 06/20/22 04:16 Plt Count 215 10^3/uL (130-450) 06/20/22 04:16 MPV 10.4 fL (7.9-10.8) 06/20/22 04:16 Neut # (Auto) Not Reportable 06/20/22 04:16 Lymph # (Auto) Not Reportable 06/20/22 04:16 [place] # (Auto) Not Reportable 06/20/22 04:16 Eos # (Auto) Not Reportable 06/20/22 04:16 Baso # (Auto) Not Reportable 06/20/22 04:16 Absolute Nucleated RBC Not Reportable 06/20/22 04:16 Total Counted 100 06/20/22 04:16 Band Neuts % (Manual) 2 % (0-10) 06/20/22 04:16 Abnorm Lymph % (Manual) 0 % 06/20/22 04:16 Metamyelocytes % 4 % (-0) H 06/20/22 04:16 Myelocytes % 3 % (-0) H 06/20/22 04:16 Nucleated RBC % Not Reportable 06/20/22 04:16 Neutrophils # (Manual) 14.6 10^3/uL (1.5-6.6) H 06/20/22 04:16 Lymphocytes # (Manual) 1.7 10^3/uL (1.5-3.5) 06/20/22 04:16 Monocytes # (Manual) 0.9 10^3/uL (0.0-1.0) 06/20/22 04:16 Eosinophils # (Manual) 0.2 10^3/uL (0-0.7) 06/20/22 04:16 Basophils # (Manual) 0.0 10^3/uL (0-0.1) 06/20/22 04:16 Differential Comment MANUAL DIFFERENTIAL 06/20/22 04:16 Manual Slide Review Indicated 06/16/22 12:29 WBC Morphology NORMAL APPEARANCE (NORMAL) 06/20/22 04:16 Platelet Estimate NORMAL (130-450,000) (NORMAL) 06/20/22 04:16 Platelet Morphology NORMAL APPEARANCE (NORMAL) 06/20/22 04:16 RBC Morph Micro Appear 1+ HYPOCHROMASIA (NORMAL) 06/20/22 04:16 Sodium 137 mmol/L (135-145) 06/20/22 04:16 Potassium 3.3 mmol/L (3.5-5.0) L 06/20/22 04:16 Chloride 107 mmol/L (101-111) 06/20/22 04:16 Carbon Dioxide 21 mmol/L (21-32) 06/20/22 04:16 Anion Gap 9.0 (6-13) 06/20/22 04:16 BUN 14 mg/dL (6-20) 06/20/22 04:16 Creatinine 0.7 mg/dL (0.4-1.0) 06/20/22 04:16 Estimated GFR (MDRD) 81 (>89) L 06/20/22 04:16 Glucose 83 mg/dL (70-100) 06/20/22 04:16 Lactic Acid 2.2 mmol/L (0.5-2.2) 06/15/22 12:17 Calcium 8.0 mg/dL (8.5-10.3) L 06/20/22 04:16 Total Bilirubin 1.0 mg/dL (0.2-1.0) 06/20/22 04:16 AST 27 IU/L (10-42) 06/20/22 04:16 ALT 24 IU/L (10-60) 06/20/22 04:16 Alkaline Phosphatase 74 IU/L (42-121) 06/20/22 04:16 Lactate Dehydrogenase 169 IU/L (91-225) 06/17/22 04:15 C-Reactive Protein 12.9 mg/dL (0-1.0) H 06/20/22 04:16 Total Protein 5.1 g/dL (6.7-8.2) L 06/20/22 04:16 Albumin 2.4 g/dL (3.2-5.5) L 06/20/22 04:16 Globulin 2.7 g/dL (2.1-4.2) 06/20/22 04:16 Albumin/Globulin Ratio 0.9 (1.0-2.2) L 06/20/22 04:16 Triglycerides 124 mg/dL (-149) 06/15/22 11:20 Cholesterol 229 mg/dL (-199) H 06/15/22 11:20 LDL Cholesterol, Calc 136 mg/dL (-129) H 06/15/22 11:20 VLDL Cholesterol 25 mg/dL 06/15/22 11:20 HDL Cholesterol 68 mg/dL (60-) 06/15/22 11:20 LDL/HDL Ratio 2.0 (<4.4) 06/15/22 11:20 Cholesterol/HDL Ratio 3.4 (<4.4) 06/15/22 11:20 Lipase 69 U/L (22-51) H 06/19/22 05:09 Procalcitonin 4.75 ng/mL (<0.5) H* 06/20/22 09:03 Urine Color YELLOW 06/15/22 14:06 Urine Clarity CLEAR (CLEAR) 06/15/22 14:06 Urine pH 5.5 PH (5.0-7.5) 06/15/22 14:06 Ur Specific [place] <=1.005 (1.002-1.030) 06/15/22 14:06 Urine Protein NEGATIVE mg/dL (NEGATIVE) 06/15/22 14:06 Urine Glucose (UA) NEGATIVE mg/dL (NEGATIVE) 06/15/22 14:06 Urine Ketones NEGATIVE mg/dL (NEGATIVE) 06/15/22 14:06 Urine Occult Blood NEGATIVE (NEGATIVE) 06/15/22 14:06 Urine Nitrite NEGATIVE (NEGATIVE) 06/15/22 14:06 Urine Bilirubin NEGATIVE (NEGATIVE) 06/15/22 14:06 Urine Urobilinogen 0.2 (NORMAL) E.U./dL (NORMAL) 06/15/22 14:06 Ur Leukocyte Esterase NEGATIVE (NEGATIVE) 06/15/22 14:06 Ur Microscopic Review NOT INDICATED 06/15/22 14:06 Urine Culture Comments NOT INDICATED 06/15/22 14:06 SARS-CoV-2 (PCR) NOT DETECTED 06/15/22 12:15 - Procedures Procedures: Procedures COLONOSCOPY (09/11/13)
[2022-06-20] MEDS: SODIUM CHLORIDE 0.9% 1,000 ML IV SCH (15:21)
[2022-06-20] MEDS: levoFLOXacin 250 MG TABLET PO SCH (19:06)
[2022-06-21] MEDS: SODIUM CHLORIDE FLUSH 0.9% 10 ML SYRINGE IVP SCH ×3 (06:19→16:27)
[2022-06-21] MEDS: LEVOTHYROXINE 75 MCG TABLET PO SCH (06:19)
[2022-06-21] MEDS: SODIUM CHLORIDE 0.9% 1,000 ML IV SCH (07:48)
[2022-06-21] MEDS: MAG HYDROX/AL HYDROX/SIMETH 30 ML UDC PO PRN (07:49)
[2022-06-21] MEDS: metroNIDAZOLE 250 MG TABLET PO SCH ×2 (07:49→12:09)
[2022-06-21] MEDS: ENOXAPARIN 40 MG/0.4 ML SYRINGE SUBQ SCH (08:02)
[2022-06-21] MEDS: CALCIUM CARBONATE CHEW 500 MG TABLET PO SCH ×2 (08:03→20:35)
[2022-06-21 09:08] LABS: BASOPHILS % (AUTO) 0.3 %; HGB - HEMOGLOBIN 12.3 g/dL (12.0-16.0); LYMPHOCYTES % (AUTO) 12.1 %; MEAN CORPUSCULAR HEMOGLOBIN 31.1 pg (27.0-31.0); MEAN CORPUSCULAR HGB CONC 33.2 g/dL (32.0-36.0); MEAN CORPUSCULAR VOLUME 93.4 fL (81.0-99.0); MEAN PLATELET VOLUME 10.2 fL (7.9-10.8); NEUTROPHILS % (AUTO) 56.7 %; PLT - PLATELET COUNT 244 10^3/uL (130-450); RED BLOOD COUNT 3.96 10^6/uL (4.20-5.40); RED CELL DISTRIBUTION WIDTH 15.3 % (12.0-15.0); WHITE BLOOD COUNT 15.8 x10^3/uL (4.8-10.8)
[2022-06-21 09:20] LABS: CALCIUM 8.5 mg/dL (8.5-10.3); CREATININE 0.6 mg/dL (0.4-1.0); POTASSIUM 3.8 mmol/L (3.5-5.0)
[2022-06-21] MEDS: PANTOPRAZOLE 40 MG TABLET PO SCH ×2 (09:22→20:34)
[2022-06-21 09:53] LABS: PLATELET MORPHOLOGY NORMAL APPEARANCE (NORMAL); RBC MORPHOLOGY (MULTIPLE) NORMAL APPEARANCE (NORMAL)
[2022-06-21 09:54] LABS: DIFFERENTIAL COMMENT MANUA; PLATELET ESTIMATE, MANUAL NORMAL (130-450,000) (NORMAL)
--- NOTE | 2022-06-21 13:56 | PROVIDER PROGRESS NOTE ---
Assessment/Plan - Problem List (1) Diarrhea Assessment/Plan: This is a new problem for her that started yesterday and she had alot of liquidy diarrhea overnight and today. She has denied any abdominal pain or blood in the stool. They happen after any oral intake. Etiology could be her COVID and Influenza A recent infections. Also her stold me yesterday that he had sudden watery diarrhea about a month ago and she cleaned up after him. Most likely, it is from being on antibiotics. We ordered stool for bacterial culture. Will also order stool for C. diff. Continue with IV fluids. She is not yet ready for discharge. (2) E coli bacteremia Impression: Cause is still unclear. She was on iv antibx and we started her on oral antibiotics to prepare her for home discharge. Repeat blood cultures on 06/17 came back negative. Her WBC has finally improved over the past 2 days. Procalcitonin has decreased from 8 down to 2.7 today. We will continue to monitor her WBC and temperature. If she develops fevers again or continued increased WBC, we will obtain another CT of the abdomen and reconsider choice of antibiotics. She is being treated with Levaquin 750mg once daily and Metronidazole 500mg three times daily. (Today is day 4 of (oral) antibiotics for a total of 10 days of treatment). However, because oral Metronidazole causes her nausea, and we will switch back to IV metronidazole (3) Acute pancreatitis Impression: Cause is still unclear. Her lipase has improved compared to day of admission. She has no more abd pain and is sitting up in her chair. Yesterday she was tolerating clear liquids, but needed pre-medication with iv anti-emetics and Maalox for reflux and burning sensation in her epigastric region. We tried advancing to pured diet (only giving applesauce and mashed potatoes), but she did not tolerate that and herself wanted to resume clear liquids only. Will start PPN today, for nutrition and calories, since she has had poor intake for 7 days. Qualifiers: Acute pancreatitis complication: no infection or necrosis (4) Hypokalemia mpression: This is likely from inadequate intake and now could also be from diarrhea. Will replace with K riders IV and try p.o. replacement. Follow BMP daily (5) Hypothyroidism Impression: We restarted her home med - Current Meds Current Meds: Current Medications Generic Name Dose Route Start Last Admin Trade Name Freq PRN Reason Stop Dose Admin Acetaminophen 650 mg 06/17/22 20:41 06/18/22 00:29 Acetaminophen 325 Mg Tablet PO 650 mg Q4HR PRN Administration HEADACHE Calcium Carbonate/Glycine 500 mg 06/18/22 14:28 06/21/22 08:03 Calcium Carbonate Chew 500 Mg Tablet PO 500 mg BID MARCOS Administration Enoxaparin Sodium 40 mg 06/16/22 09:00 06/21/22 08:02 Enoxaparin 40 Mg/0.4 Ml Syringe SUBQ 40 mg DAILY MARCOS Administration Sodium Chloride 1,000 mls @ 60 mls/hr 06/16/22 18:00 06/21/22 07:48 Normal Saline 0.9% IV 60 mls/hr .[id number] MARCOS Administration Levofloxacin 750 mg 06/18/22 19:00 06/20/22 19:06 Levofloxacin 250 Mg Tablet PO 750 mg Q24H MARCOS Administration Levothyroxine Sodium 75 mcg 06/21/22 07:00 06/21/22 06:19 Levothyroxine 75 Mcg Tablet PO 75 mcg QDAC MARCOS Administration Metronidazole 500 mg 06/18/22 18:00 06/21/22 12:09 Metronidazole 250 Mg Tablet PO 500 mg TIDWM MARCOS Administration Morphine Sulfate 2 mg 06/15/22 14:31 06/18/22 17:16 Morphine 2 Mg/Ml Carpuject IVP 1 mg Q2HR PRN Administration Pain 8 to 10 Ondansetron HCl 4 mg 06/15/22 14:31 06/19/22 16:54 Ondansetron Odt 4 Mg Tablet TL 4 mg Q6HR PRN Administration Nausea / Vomiting Ondansetron HCl 4 mg 06/15/22 14:31 06/20/22 11:46 Ondansetron 4 Mg/2 Ml Vial IVP 4 mg Q6HR PRN Administration Nausea / Vomiting Pantoprazole Sodium 40 mg 06/21/22 09:08 06/21/22 09:22 Pantoprazole 40 Mg Tablet PO 40 mg BID MARCOS Administration Sodium Chloride 10 ml 06/15/22 14:31 06/18/22 12:42 Sodium Chloride Flush 0.9% 10 Ml Syringe IVP 10 ml PRN PRN Administration NEEDED PER PROVIDER ORDERS Sodium Chloride 10 ml 06/15/22 17:00 06/21/22 12:10 Sodium Chloride Flush 0.9% 10 Ml Syringe IVP Not Given 0100,0900,1700 MARCOS - Lab Result Fish Bone Diagrams: 06/21/22 09:02 06/21/22 09:02 - Additional Planning My Orders: My Active Orders 06/21/22 C DIFF PCR Stat 06/21/22 06:30 STOOL CULTURE [REFLAB] Urgent 06/21/22 07:00 Levothyroxine [Synthroid] 75 mcg PO QDAC 06/21/22 09:08 Pantoprazole [Protonix] 40 mg PO BID 06/21/22 11:04 Daily Weight [RC] DAILY Message to Nursing [RC] QSHIFT 06/21/22 Lunch Clear Liquid Diet [DIET] 06/21/22 16:00 Cholecalciferol [Vitamin D3] 50 mcg PO DAILY [place]-3 Acid Ethyl Esters [Lovaza] 1 gm PO DAILY 06/21/22 19:00 Fat Emulsion 20% [Intralipid 20%] 250 ml IV 1899 Multivitamin [Infuvite] 10 ml Trace Elements [Tralement Vial] 1 ml Ppn (Clinimix E 4.25/5) [Clinimix E 4.25%-5% Solution] 2,000 ml IV 1900 06/22/22 05:00 BMP - BASIC METABOLIC PANEL [CHEM] DAILYLAB CBC - COMP BLD CT W/AUTO DIFF [HEME] DAILYLAB COMPREHENSIVE METABOLIC PANEL [CHEM] Routine MAGNESIUM [CHEM] Routine PHOSPHORUS [CHEM] Routine PREALBUMIN [CHEM] Routine TRIGLYCERIDES [CHEM] Routine 06/24/22 05:00 COMPREHENSIVE METABOLIC PANEL [CHEM] Routine MAGNESIUM [CHEM] Routine PHOSPHORUS [CHEM] Routine PREALBUMIN [CHEM] Routine TRIGLYCERIDES [CHEM] Routine 06/26/22 05:00 COMPREHENSIVE METABOLIC PANEL [CHEM] Routine MAGNESIUM [CHEM] Routine PHOSPHORUS [CHEM] Routine PREALBUMIN [CHEM] Routine TRIGLYCERIDES [CHEM] Routine 06/29/22 05:00 COMPREHENSIVE METABOLIC PANEL [CHEM] Routine MAGNESIUM [CHEM] Routine PHOSPHORUS [CHEM] Routine PREALBUMIN [CHEM] Routine TRIGLYCERIDES [CHEM] Routine Subjective - Subjective Patient Reports: Diarrhea (She has had about 7 watery diarrhea bowel movements since midnight, and feels exhausted.), Nausea (Tums is not helping. She wants the Mylanta stopped since it has magnesium which could be adding to diarrhea. The Flagyl oral tablet gives her nausea.) Objective Vital Signs: Vital Signs - 24 hr 06/20/22 06/21/22 06/21/22 16:00 00:00 08:19 Temperature 36.7 C 37.4 C 36.5 C Heart Rate [ 78 85 89 Brachial] Respiratory 16 14 16 Rate Blood Pressure 116/59 L 106/57 L 123/57 L [Right Brachial artery] O2 Saturation 95 95 96 Oxygen O2 Source Room air I&O (Last 24 Hrs): Intake and Output Totals x24h 06/19/22 06/20/22 06/21/22 23:59 23:59 23:59 Intake Total 2120 2243 1467 Output Total 550 Balance 2120 1693 1467 General: Alert, Oriented x3 HEENT: Mucous membr. moist/pink Neck: Supple Neuro: Alert, Non Focal Cardiovascular: Regular rate, No murmurs Respiratory: No respiratory distress, Breath sounds nml Abdomen: Soft, No tenderness, Other (Hyperactive bowel sounds in all 4 quadrants) Extremities: No clubbing, No edema Skin: No rashes - Results Results: Laboratory Results WBC 15.8 x10^3/uL (4.8-10.8) H 06/21/22 09:02 RBC 3.96 10^6/uL (4.20-5.40) L 06/21/22 09:02 Hgb 12.3 g/dL (12.0-16.0) 06/21/22 09:02 Hct 37.0 % (37.0-47.0) 06/21/22 09:02 MCV 93.4 fL (81.0-99.0) 06/21/22 09:02 MCH 31.1 pg (27.0-31.0) H 06/21/22 09:02 MCHC 33.2 g/dL (32.0-36.0) 06/21/22 09:02 RDW 15.3 % (12.0-15.0) H 06/21/22 09:02 Plt Count 244 10^3/uL (130-450) 06/21/22 09:02 MPV 10.2 fL (7.9-10.8) 06/21/22 09:02 Neut # (Auto) Not Reportable 06/21/22 09:02 Lymph # (Auto) Not Reportable 06/21/22 09:02 [place] # (Auto) Not Reportable 06/21/22 09:02 Eos # (Auto) Not Reportable 06/21/22 09:02 Baso # (Auto) Not Reportable 06/21/22 09:02 Absolute Nucleated RBC Not Reportable 06/21/22 09:02 Total Counted 100 06/20/22 04:16 Band Neuts % (Manual) Not Reportable 06/21/22 09:02 Abnorm Lymph % (Manual) Not Reportable 06/21/22 09:02 Metamyelocytes % 4 % (-0) H 06/20/22 04:16 Myelocytes % 3 % (-0) H 06/20/22 04:16 Nucleated RBC % Not Reportable 06/21/22 09:02 Neutrophils # (Manual) Not Reportable 06/21/22 09:02 Lymphocytes # (Manual) Not Reportable 06/21/22 09:02 Monocytes # (Manual) Not Reportable 06/21/22 09:02 Eosinophils # (Manual) Not Reportable 06/21/22 09:02 Basophils # (Manual) Not Reportable 06/21/22 09:02 Differential Comment MANUA 06/21/22 09:02 Manual Slide Review Indicated 06/16/22 12:29 WBC Morphology NORMAL APPEARANCE (NORMAL) 06/20/22 04:16 Platelet Estimate NORMAL (130-450,000) (NORMAL) 06/21/22 09:02 Platelet Morphology NORMAL APPEARANCE (NORMAL) 06/21/22 09:02 RBC Morph Micro Appear NORMAL APPEARANCE (NORMAL) 06/21/22 09:02 Sodium 136 mmol/L (135-145) 06/21/22 09:02 Potassium 3.8 mmol/L (3.5-5.0) 06/21/22 09:02 Chloride 107 mmol/L (101-111) 06/21/22 09:02 Carbon Dioxide 24 mmol/L (21-32) 06/21/22 09:02 Anion Gap 5.0 (6-13) L 06/21/22 09:02 BUN 12 mg/dL (6-20) 06/21/22 09:02 Creatinine 0.6 mg/dL (0.4-1.0) 06/21/22 09:02 Estimated GFR (MDRD) 97 (>89) 06/21/22 09:02 Glucose 114 mg/dL (70-100) H 06/21/22 09:02 Lactic Acid 2.2 mmol/L (0.5-2.2) 06/15/22 12:17 Calcium 8.5 mg/dL (8.5-10.3) 06/21/22 09:02 Total Bilirubin 1.0 mg/dL (0.2-1.0) 06/20/22 04:16 AST 27 IU/L (10-42) 06/20/22 04:16 ALT 24 IU/L (10-60) 06/20/22 04:16 Alkaline Phosphatase 74 IU/L (42-121) 06/20/22 04:16 Lactate Dehydrogenase 169 IU/L (91-225) 06/17/22 04:15 C-Reactive Protein 11.9 mg/dL (0-1.0) H 06/21/22 04:28 Total Protein 5.1 g/dL (6.7-8.2) L 06/20/22 04:16 Albumin 2.4 g/dL (3.2-5.5) L 06/20/22 04:16 Globulin 2.7 g/dL (2.1-4.2) 06/20/22 04:16 Albumin/Globulin Ratio 0.9 (1.0-2.2) L 06/20/22 04:16 Triglycerides 124 mg/dL (-149) 06/15/22 11:20 Cholesterol 229 mg/dL (-199) H 06/15/22 11:20 LDL Cholesterol, Calc 136 mg/dL (-129) H 06/15/22 11:20 VLDL Cholesterol 25 mg/dL 06/15/22 11:20 HDL Cholesterol 68 mg/dL (60-) 06/15/22 11:20 LDL/HDL Ratio 2.0 (<4.4) 06/15/22 11:20 Cholesterol/HDL Ratio 3.4 (<4.4) 06/15/22 11:20 Lipase 69 U/L (22-51) H 06/19/22 05:09 Procalcitonin 2.71 ng/mL (<0.5) H* 06/21/22 09:02 Urine Color YELLOW 06/15/22 14:06 Urine Clarity CLEAR (CLEAR) 06/15/22 14:06 Urine pH 5.5 PH (5.0-7.5) 06/15/22 14:06 Ur Specific [place] <=1.005 (1.002-1.030) 06/15/22 14:06 Urine Protein NEGATIVE mg/dL (NEGATIVE) 06/15/22 14:06 Urine Glucose (UA) NEGATIVE mg/dL (NEGATIVE) 06/15/22 14:06 Urine Ketones NEGATIVE mg/dL (NEGATIVE) 06/15/22 14:06 Urine Occult Blood NEGATIVE (NEGATIVE) 06/15/22 14:06 Urine Nitrite NEGATIVE (NEGATIVE) 06/15/22 14:06 Urine Bilirubin NEGATIVE (NEGATIVE) 06/15/22 14:06 Urine Urobilinogen 0.2 (NORMAL) E.U./dL (NORMAL) 06/15/22 14:06 Ur Leukocyte Esterase NEGATIVE (NEGATIVE) 06/15/22 14:06 Ur Microscopic Review NOT INDICATED 06/15/22 14:06 Urine Culture Comments NOT INDICATED 06/15/22 14:06 SARS-CoV-2 (PCR) NOT DETECTED 06/15/22 12:15 - Procedures Procedures: Procedures COLONOSCOPY (09/11/13)
[2022-06-21] MEDS ORDERED: OMEGA-3 ACID ETHYL ESTERS 1 GM CAPSULE PO SCH (16:00)
[2022-06-21] MEDS ORDERED: CHOLECALCIFEROL 25 MCG TABLET PO SCH (16:00)
[2022-06-21] MEDS: ONDANSETRON 4 MG/2 ML VIAL IVP PRN (16:19)
[2022-06-21] MEDS: metroNIDAZOLE 500 MG/100 ML 500 MG/100 ML BAG IV SCH (17:21)
[2022-06-21] MEDS: FAT EMULSION 20% 250 ML IV SCH (18:55)
[2022-06-21] MEDS ORDERED: PPN (CLINIMIX E 4.25/5) 2,000 ML with MULTIVITAMIN 10 ML, TRACE ELEMENTS 1 ML IV SCH ×3 (19:00)
[2022-06-21] MEDS: levoFLOXacin 250 MG TABLET PO SCH (20:36)
[2022-06-22] MEDS: ACETAMINOPHEN 325 MG TABLET PO PRN (00:03)
[2022-06-22] MEDS: ONDANSETRON 4 MG/2 ML VIAL IVP PRN ×3 (00:13→14:48)
[2022-06-22] MEDS: SODIUM CHLORIDE FLUSH 0.9% 10 ML SYRINGE IVP SCH ×4 (00:13→15:47)
[2022-06-22] MEDS ORDERED: ACETAMINOPHEN 1,000 MG/100 ML 1,000 MG/100 ML BAG IV ONE (00:59)
--- NOTE | 2022-06-22 01:01 | PROVIDER PROGRESS NOTE ---
Hospitalist Cross-cover Note - Cross-Cover Note Cross-Cover Note: Pt febrile 38.7. Vomited PO tylenol. Ordered IV tylenol. Ordered repeat blood cx, pt is on abx, bcx 06/15 E coli, bcx 06/17 NGTD. Consider further imaging work up given fever - defer to primary team in a.m.
[2022-06-22] MEDS: SODIUM CHLORIDE 0.9% 1,000 ML IV SCH ×2 (01:20→19:13)
[2022-06-22] MEDS: metroNIDAZOLE 500 MG/100 ML 500 MG/100 ML BAG IV SCH ×3 (01:49→16:44)
[2022-06-22 04:55] LABS: BASOPHILS % (AUTO) 0.3 %; EOSINOPHILS % (AUTO) 0.8 %; HCT - HEMATOCRIT 41.6 % (37.0-47.0); HGB - HEMOGLOBIN 13.8 g/dL (12.0-16.0); LYMPHOCYTES % (AUTO) 16.1 %; MEAN CORPUSCULAR HEMOGLOBIN 30.5 pg (27.0-31.0); MEAN CORPUSCULAR HGB CONC 33.2 g/dL (32.0-36.0); MEAN PLATELET VOLUME 10.2 fL (7.9-10.8); MONOCYTES % (AUTO) 3.9 %; NEUTROPHILS % (AUTO) 55.8 %; PLT - PLATELET COUNT 280 10^3/uL (130-450); RED BLOOD COUNT 4.52 10^6/uL (4.20-5.40); RED CELL DISTRIBUTION WIDTH 15.5 % (12.0-15.0); WHITE BLOOD COUNT 11.7 x10^3/uL (4.8-10.8)
[2022-06-22 04:58] LABS: ABNORMAL LYMPHS % (MANUAL) 0 %
[2022-06-22 05:13] LABS: BAND NEUTROPHILS % (MANUAL) 10 %; BASOPHILS # (MANUAL) 0.1 10^3/uL (0-0.1); BASOPHILS % (MANUAL) 1 %; EOSINOPHILS # (MANUAL) 0.1 10^3/uL (0-0.7); LYMPHOCYTES # (MANUAL) 0.5 10^3/uL (1.5-3.5); LYMPHOCYTES % (MANUAL) 4 %; METAMYELOCYTES % (MANUAL) 8 %; MONOCYTES # (MANUAL) 0.6 10^3/uL (0.0-1.0); MYELOCYTES % (MANUAL) 4 %
[2022-06-22 05:14] LABS: DIFFERENTIAL COMMENT MANUAL DIFFERENTIAL; PLATELET ESTIMATE, MANUAL NORMAL (130-450,000) (NORMAL); PLATELET MORPHOLOGY NORMAL APPEARANCE (NORMAL); RBC MORPHOLOGY (MULTIPLE) NORMAL APPEARANCE (NORMAL); WBC MORPHOLOGY (MULTIPLE) NORMAL APPEARANCE (NORMAL)
[2022-06-22 05:18] LABS: ALBUMIN 2.6 g/dL (3.2-5.5); ALBUMIN/GLOBULIN RATIO 0.9 (1.0-2.2); BILIRUBIN,TOTAL 0.7 mg/dL (0.2-1.0); CALCIUM 7.9 mg/dL (8.5-10.3); CREATININE 0.7 mg/dL (0.4-1.0); CRP - C-REACTIVE PROTEIN 10.4 mg/dL (0-1.0); PHOSPHORUS 3.3 mg/dL (2.5-4.6); POTASSIUM 3.1 mmol/L (3.5-5.0); TOTAL PROTEIN 5.5 g/dL (6.7-8.2)
[2022-06-22] MEDS ORDERED: iohexoL-300 100 ML VIAL ONE (08:14)
[2022-06-22] MEDS ORDERED: DIATRIZOATE MEGLU/DIATRIZO SOD 30 ML BOTTLE PO ONE ×2 (08:14→10:27)
[2022-06-22] MEDS: LEVOTHYROXINE 75 MCG TABLET PO SCH (08:41)
[2022-06-22] MEDS: PANTOPRAZOLE 40 MG VIAL IV SCH ×2 (08:42→20:28)
[2022-06-22] MEDS: ENOXAPARIN 40 MG/0.4 ML SYRINGE SUBQ SCH (08:42)
--- NOTE | 2022-06-22 09:53 | CONSULTATION NOTE ---
Surgery Consult - Admit Date Hospital Admission Date: 06/15/22 - Consult Date Consult Date: 06/22/22 Requesting Provider: Dr Harrell - Chief Complaint Chief Complaint: Abdominal pain - Home Meds/Allergies Home Medications: Patient History Medication Instructions Recorded Confirmed Levothyroxine [Synthroid] 75 mcg PO QDAC 06/15/22 06/16/22 Calcium Carbonate [Tums (Calcium 1,000 mg PO BID PRN 06/16/22 06/16/22 Carbonate 500mg)] Allergies/Adverse Reactions: Allergies Allergy/AdvReac Type Severity Reaction Status Date / Time metronidazole [From Flagyl] Allergy Unknown Unknown Verified 06/15/22 11:29 Metronidazole HCl * Allergy Unknown Unknown Verified 06/15/22 11:29 [From Flagyl] - Vital Signs Vital Signs: Last Vital Signs Temp 98.2 F 06/22/22 08:41 Pulse 102 H 06/22/22 08:41 Resp 18 06/22/22 08:41 BP 131/64 H 06/22/22 08:41 Pulse Ox 94 06/22/22 08:41 O2 Flow Rate Intake & Output: Intake & Output 06/19/22 06/20/22 06/21/22 06/22/22 23:59 23:59 23:59 23:59 Intake Total 2120 2243 2847 1450 Output Total 550 100 Balance 2120 1693 2847 1350 - Lab Results Result Diagrams: 06/22/22 04:41 06/22/22 04:41 - Consultation Note Consultation Note: SCathy Padilla is a 77 year old female who was admitted last with abdominal pain, diarrhea, nausea and vomiting. She tells me that her bowels have been a bit abnormal since her return from [place] in late April becoming less firm and more watery. At that time she was also diagnosed with Covid and Influenza and seemingly recovered uneventfully from those respiratory viruses. At no time did she receive oral or IV antibiotics. Last Sunday evening she ate at a local [employer] restaurant with friends and family and the next day was afflicted with the sudden onset of watery diarrhea, nausea, vomiting and abdominal pain. The pain was located in the periumbilical and epigastric region with some radiation to the right flank. It was described as constant and she could do nothing to alleviate the discomfort. She came to the ED and was found to have CT evidence of pancreatic inflammation without involvement of the biliary tract (no gallstones/bile duct dilation/gallbladder inflammation or distension). Her admission lipase level was also slightly elevated. She was admitted for treatment of suspected pancreatitis. That evening, a blood culture result indicated E. Coli bacteremia and she was started on Rocephin. Over the next 24 hours her leukocytosis worsened and she developed fever and chills. Rocephin was discontinued and Merepenim started. The following day she felt better and was started on a PO diet. The Merepenim was discontinued and oral Flagyl/Levaquin started. Last evening she developed a fever and blood cultures were obtained. Today IV Levaquin and Flagyl were started and I was asked to assist in her evaluation and management. During our interview, she does not appear ill. She is sitting in a chair next to her bed and ingesting contrast for a CT scan that is to be done later this morning. She tells me that her abdominal pain is essentially gone but she has profuse diarrhea yesterday and today. She is on PPN as her appetite is poor. O: VSS, afebrile this morning. AAO. Comfortable and cooperative. HEENT normal; Neck without masses; Lungs clear to A; Heart NSR; Abdomen is soft, minimal tenderness in the hypogastric region. No RUQ tenderness or mass; No guarding; No rebound; BS active Extremities - mild lower extremity edema. Image Studies: CT Abd/Pelvis; US RUQ; MRI Abdomen - diverticulosis of the sigmoid colon; mile pancreatic inflammation; No biliary tract disease. No pelvic fluid or abscess Assessment: 1) Abdominal pain, diarrhea, emesis - possible gastroenteritis perhaps, E.Coli enteritis. In the absence of any other intra-abdominal source of an E. Coli source, this seems most likely. Recommendation: 1) Continue PPN until taking PO well 2) IV fluids as needed 3) Stool for enteric pathogens 4) Continue IV antibiotics as she seemed to regress when switched to orals 5) Await result of today's follow-up CT scan 6) Surgery will follow Wai Pierce MD General Surgery Service
[2022-06-22] MEDS ORDERED: iohexoL-300 100 ML VIAL IVP ONE (10:27)
--- NOTE | 2022-06-22 11:03 | CT Report ---
PROCEDURE: ABDOMEN/PELVIS W INDICATIONS: Pancreatitis recent, new Diarrhea, Fever CONTRAST: 100ml omnipaque 300 TECHNIQUE: After the administration of intravenous contrast, 5 mm thick sections acquired from the diaphragms to the symphysis. 5 mm thick coronal and sagittal reformats were acquired. For radiation dose reducti on, the following was used: automated exposure control, adjustment of mA and/or kV according to kamaljit ent size. COMPARISON: CT abdomen pelvis and MRI pancreas 06/15/2022. FINDINGS: Image quality: Excellent. ABDOMEN: Lung bases: Small bilateral pleural effusions, new. Small hiatal hernia. Heart size is normal. Solid organs: Liver and spleen are normal in size and enhancement. Gallbladder is not distended. Th ere is increased conspicuity of the gallbladder wall. Probable trace pericholecystic fluid. Biliary system is non dilated. There is minimal heterogeneity of the enhancement in the head of the pancreas and the other portions of the pancreas enhance uniformly. There is peripancreatic free fluid which is not significantly roca ged compared to 06/15/2022. No loculated collection. No adrenal nodules. Kidneys demonstrate normal size and enhancement, without hydronephrosis. Peritoneum and bowel: No small bowel obstruction. Liquid stool contents in the colon. Diverticulosis. Normal appendix. No free fluid or air. Nodes and vessels: No retroperitoneal or mesenteric adenopathy by size criteria. Aorta and inferior vena cava are normal in size. No filling defect in the portal vein. No pseudoaneurysm identified. Miscellaneous: No ventral hernias. Flank edema. PELVIS: Genitourinary: Bladder wall thickness is normal. Vertically oriented uterus. Small volume of free f luid in the pelvis which is low-density and new. Miscellaneous: No inguinal hernias or adenopathy. Bones: No suspicious bony lesions. DDD. No vertebral body compression fractures. IMPRESSION: 1. Mild heterogeneous enhancement of the pancreas. This raises the possibility of pancreatic necrosis . 2. Interstitial edematous pancreatitis. Peripancreatic free fluid is not significant change. 3. New small volume of free fluid collecting in the pelvis. Anasarca. New small bilateral pleural eff usions. 4. Liquid stool contents in the colon suggesting diarrhea. Reviewed by: Toni Nava MD on 06/22/2022 10:02 AM ISA Approved by: Toni Nava MD on 06/22/2022 10:02 AM ISA Station ID: [id number]
--- NOTE | 2022-06-22 11:46 | PROVIDER PROGRESS NOTE ---
Assessment/Plan - Problem List (1) Fever Assessment/Plan: She spiked a fever at midnight, blood cultures were ordered by the telemedicine night doctor and were sent. We have changed her oral antibiotics back to IV form using IV Levaquin and IV metronidazole because of the presumption that her ideopathic pancreatitis may be related to an E. coli from the bowel. We will also de-escalate her diet back to n.p.o. except ice chips. We have request General Surgery consult. Will obtain repeat imaging with CT of abdomen pelvis using IV contrast plus oral contrast She also has spiked a fever at 6 PM today. Will change antibx coverage to Meropenam iv q8h. (2) Acute pancreatitis Impression: Cause is still unclear. Possibly she has ideopathic pancreatitis or a form ass ociated with COVID, since she had COVID 1 month ago (entirely with pulmonary and nasal sx). Her lipase improved then danielle back up today. She has no more abd pain but is very nauseated. We tried clear liquids and she is nauseated with that. Will order a PICC line insertion by Anesthesia and start TPN today, for nutrition and calories, since she has had poor intake for 7 days. Will give antiemetics iv. Will get repeat CT imaging and Gen Surg evaluation. (3) Diarrhea Improved. This was a new problem for her that started 2 days ago and she had alot of liquidy diarrhea for 2 days, slowed down today. She has denied any abdominal pain or blood in the stool. They happened after any oral intake. Etiology could be her COVID and Influenza A recent infections. Most likely, it is from being on antibiotics. CT abd will evaluate for colitis. Her stool for C. diff was neg. We ordered stool for bacterial culture. If these come back neg will order prn Imodium Continue with IV fluids. (4) E coli bacteremia Impression: Cause is still unclear. She was on iv antibx and we started her on oral antibiotics to prepare her for home discharge. Repeat blood cultures on 06/17 came back negative. Her WBC finally improved & Procalcitonin has decreased. Due to fever spikes, we will change antibx coverage to Meropenam We will continue to monitor her WBC and Procalcitonon level. (5) Hypokalemia mpression: This is likely from inadequate intake and now could also be from diarrhea. Will replace with K riders IV replacement. Follow BMP daily (6) Hypothyroidism Impression: We restarted her home med, but will change it to iv form q5days, given her nausea and vomiting. - Current Meds Current Meds: Current Medications Generic Name Dose Route Start Last Admin Trade Name Freq PRN Reason Stop Dose Admin Enoxaparin Sodium 40 mg 06/16/22 09:00 06/22/22 08:42 Enoxaparin 40 Mg/0.4 Ml Syringe SUBQ 40 mg DAILY MARCOS Administration Sodium Chloride 1,000 mls @ 60 mls/hr 06/16/22 18:00 06/22/22 01:20 Normal Saline 0.9% IV 60 mls/hr .[id number] MARCOS Administration Multivitamins 10 ml/ TRACE 2,011 mls @ 83 mls/hr 06/21/22 19:00 06/21/22 18:55 ELEMENTS 1 ml/ Amino Acids/ IV 83 mls/hr Electrolytes/Dextrose 1900 MARCOS Administration Fat Emulsion Intravenous 250 mls @ 21 mls/hr 06/21/22 19:00 06/22/22 07:21 Intralipid 20% IV Infused 1900 MARCOS Infusion Metronidazole 500 mg in 100 mls @ 100 mls/hr 06/21/22 17:00 06/22/22 11:15 Flagyl 500 Mg/100 Ml IV Infused Q8H MARCOS Infusion Levothyroxine Sodium 75 mcg 06/21/22 07:00 06/22/22 08:41 Levothyroxine 75 Mcg Tablet PO 75 mcg QDAC MARCOS Administration Morphine Sulfate 2 mg 06/15/22 14:31 06/18/22 17:16 Morphine 2 Mg/Ml Carpuject IVP 1 mg Q2HR PRN Administration Pain 8 to 10 Ondansetron HCl 4 mg 06/15/22 14:31 06/19/22 16:54 Ondansetron Odt 4 Mg Tablet TL 4 mg Q6HR PRN Administration Nausea / Vomiting Ondansetron HCl 4 mg 06/15/22 14:31 06/22/22 09:09 Ondansetron 4 Mg/2 Ml Vial IVP 4 mg Q6HR PRN Administration Nausea / Vomiting Pantoprazole Sodium 40 mg 06/22/22 09:00 06/22/22 08:42 Pantoprazole 40 Mg Vial IV 40 mg BID MARCOS Administration Prochlorperazine Edisylate 10 mg 06/15/22 14:31 06/22/22 04:22 Prochlorperazine 10 Mg/2 Ml Vial IVP 10 mg Q6HR PRN Administration Nausea / Vomiting Sodium Chloride 10 ml 06/15/22 14:31 06/18/22 12:42 Sodium Chloride Flush 0.9% 10 Ml Syringe IVP 10 ml PRN PRN Administration NEEDED PER PROVIDER ORDERS Sodium Chloride 10 ml 06/15/22 17:00 06/22/22 09:12 Sodium Chloride Flush 0.9% 10 Ml Syringe IVP 10 ml 0100,0900,1700 MARCOS Administration - Lab Result Fish Bone Diagrams: 06/22/22 04:41 06/22/22 04:41 - Additional Planning My Orders: My Active Orders 06/21/22 11:04 Daily Weight [RC] DAILY Message to Nursing [RC] QSHIFT 06/21/22 17:00 metroNIDAZOLE 500 MG/100 ML [Flagyl 500 mg/100 ml] 500 mg in 100 ml IV Q8H 06/21/22 19:00 Fat Emulsion 20% [Intralipid 20%] 250 ml IV 1900 Multivitamin [Infuvite] 10 ml Trace Elements [Tralement Vial] 1 ml Ppn (Clinimix E 4.25/5) [Clinimix E 4.25%-5% Solution] 2,000 ml IV 1900 06/22/22 Consult [General Surgery Consult] [CONS] Routine 06/22/22 07:35 DIET [NPO except Meds] [DIET] 06/22/22 09:00 Pantoprazole [Protonix] 40 mg IV BID 06/22/22 10:05 PICC Line Insert [RC] .ONCE 06/22/22 19:00 levoFLOXacin 750 MG/150 ML [Levaquin 750 mg/150 ml] 750 mg in 150 ml IV Q24H 06/24/22 05:00 COMPREHENSIVE METABOLIC PANEL [CHEM] Routine MAGNESIUM [CHEM] Routine PHOSPHORUS [CHEM] Routine PREALBUMIN [CHEM] Routine TRIGLYCERIDES [CHEM] Routine 06/26/22 05:00 COMPREHENSIVE METABOLIC PANEL [CHEM] Routine MAGNESIUM [CHEM] Routine PHOSPHORUS [CHEM] Routine PREALBUMIN [CHEM] Routine TRIGLYCERIDES [CHEM] Routine 06/29/22 05:00 COMPREHENSIVE METABOLIC PANEL [CHEM] Routine MAGNESIUM [CHEM] Routine PHOSPHORUS [CHEM] Routine PREALBUMIN [CHEM] Routine TRIGLYCERIDES [CHEM] Routine Subjective - Subjective Patient Reports: Fever, Nausea Nursing Reports: Other (Threw up her oral Tylenol and TUMS) Objective Vital Signs: Vital Signs - 24 hr 06/21/22 06/21/22 06/22/22 16:00 23:54 02:29 Temperature 37.8 C 38.7 C H 37.1 C Heart Rate [ 85 103 H Brachial] Respiratory 18 18 Rate Blood Pressure 133/63 H 135/67 H [Right Brachial artery] O2 Saturation 97 96 06/22/22 08:41 Temperature 36.8 C Heart Rate [ 102 H Brachial] Respiratory 18 Rate Blood Pressure 131/64 H [Right Brachial artery] O2 Saturation 94 Oxygen O2 Source Room air I&O (Last 24 Hrs): Intake and Output Totals x24h 06/20/22 06/21/22 06/22/22 23:59 23:59 23:59 Intake Total 2243 2847 1550 Output Total 550 100 Balance 1693 2847 1450 General: Alert, Mild distress, Other (lethargic) HEENT: Other ([place]. Her cheeks are flushed) Neck: Supple Neuro: Other (Appears tired. Non-focal) Cardiovascular: Regular rate Respiratory: No respiratory distress Abdomen: Soft, No tenderness Extremities: Other (Trace pre-tibial edema) - Results Results: Laboratory Results WBC 11.7 x10^3/uL (4.8-10.8) H 06/22/22 04:41 RBC 4.52 10^6/uL (4.20-5.40) 06/22/22 04:41 Hgb 13.8 g/dL (12.0-16.0) 06/22/22 04:41 Hct 41.6 % (37.0-47.0) 06/22/22 04:41 MCV 92.0 fL (81.0-99.0) 06/22/22 04:41 MCH 30.5 pg (27.0-31.0) 06/22/22 04:41 MCHC 33.2 g/dL (32.0-36.0) 06/22/22 04:41 RDW 15.5 % (12.0-15.0) H 06/22/22 04:41 Plt Count 280 10^3/uL (130-450) 06/22/22 04:41 MPV 10.2 fL (7.9-10.8) 06/22/22 04:41 Neut # (Auto) Not Reportable 06/22/22 04:41 Lymph # (Auto) Not Reportable 06/22/22 04:41 Mcintosh # (Auto) Not Reportable 06/22/22 04:41 Eos # (Auto) Not Reportable 06/22/22 04:41 Baso # (Auto) Not Reportable 06/22/22 04:41 Absolute Nucleated RBC Not Reportable 06/22/22 04:41 Total Counted 100 06/22/22 04:41 Band Neuts % (Manual) 10 % (0-10) 06/22/22 04:41 Abnorm Lymph % (Manual) 0 % 06/22/22 04:41 Metamyelocytes % 8 % (-0) H 06/22/22 04:41 Myelocytes % 4 % (-0) H 06/22/22 04:41 Nucleated RBC % Not Reportable 06/22/22 04:41 Neutrophils # (Manual) 9.0 10^3/uL (1.5-6.6) H 06/22/22 04:41 Lymphocytes # (Manual) 0.5 10^3/uL (1.5-3.5) L 06/22/22 04:41 Monocytes # (Manual) 0.6 10^3/uL (0.0-1.0) 06/22/22 04:41 Eosinophils # (Manual) 0.1 10^3/uL (0-0.7) 06/22/22 04:41 Basophils # (Manual) 0.1 10^3/uL (0-0.1) 06/22/22 04:41 Differential Comment MANUAL DIFFERENTIAL 06/22/22 04:41 Manual Slide Review Indicated 06/16/22 12:29 WBC Morphology NORMAL APPEARANCE (NORMAL) 06/22/22 04:41 Platelet Estimate NORMAL (130-450,000) (NORMAL) 06/22/22 04:41 Platelet Morphology NORMAL APPEARANCE (NORMAL) 06/22/22 04:41 RBC Morph Micro Appear NORMAL APPEARANCE (NORMAL) 06/22/22 04:41 Sodium 134 mmol/L (135-145) L 06/22/22 04:41 Potassium 3.1 mmol/L (3.5-5.0) L 06/22/22 04:41 Chloride 105 mmol/L (101-111) 06/22/22 04:41 Carbon Dioxide 22 mmol/L (21-32) 06/22/22 04:41 Anion Gap 7.0 (6-13) 06/22/22 04:41 BUN 12 mg/dL (6-20) 06/22/22 04:41 Creatinine 0.7 mg/dL (0.4-1.0) 06/22/22 04:41 Estimated GFR (MDRD) 81 (>89) L 06/22/22 04:41 Glucose 155 mg/dL (70-100) H 06/22/22 04:41 Lactic Acid 2.2 mmol/L (0.5-2.2) 06/15/22 12:17 Calcium 7.9 mg/dL (8.5-10.3) L 06/22/22 04:41 Phosphorus 3.3 mg/dL (2.5-4.6) 06/22/22 04:41 Magnesium 2.0 mg/dL (1.7-2.8) 06/22/22 04:41 Total Bilirubin 0.7 mg/dL (0.2-1.0) 06/22/22 04:41 AST 36 IU/L (10-42) 06/22/22 04:41 ALT 25 IU/L (10-60) 06/22/22 04:41 Alkaline Phosphatase 58 IU/L (42-121) 06/22/22 04:41 Lactate Dehydrogenase 169 IU/L (91-225) 06/17/22 04:15 C-Reactive Protein 10.4 mg/dL (0-1.0) H 06/22/22 04:41 Total Protein 5.5 g/dL (6.7-8.2) L 06/22/22 04:41 Albumin 2.6 g/dL (3.2-5.5) L 06/22/22 04:41 Globulin 2.9 g/dL (2.1-4.2) 06/22/22 04:41 Albumin/Globulin Ratio 0.9 (1.0-2.2) L 06/22/22 04:41 Prealbumin 7 mg/dL (18-45) L 06/22/22 04:41 Triglycerides 260 mg/dL (-149) H 06/22/22 04:41 Cholesterol 229 mg/dL (-199) H 06/15/22 11:20 LDL Cholesterol, Calc 136 mg/dL (-129) H 06/15/22 11:20 VLDL Cholesterol 25 mg/dL 06/15/22 11:20 HDL Cholesterol 68 mg/dL (60-) 06/15/22 11:20 LDL/HDL Ratio 2.0 (<4.4) 06/15/22 11:20 Cholesterol/HDL Ratio 3.4 (<4.4) 06/15/22 11:20 Lipase 115 U/L (22-51) H 06/22/22 04:41 Procalcitonin 1.68 ng/mL (<0.5) H 06/22/22 04:41 Urine Color YELLOW 06/15/22 14:06 Urine Clarity CLEAR (CLEAR) 06/15/22 14:06 Urine pH 5.5 PH (5.0-7.5) 06/15/22 14:06 Ur Specific [place] <=1.005 (1.002-1.030) 06/15/22 14:06 Urine Protein NEGATIVE mg/dL (NEGATIVE) 06/15/22 14:06 Urine Glucose (UA) NEGATIVE mg/dL (NEGATIVE) 06/15/22 14:06 Urine Ketones NEGATIVE mg/dL (NEGATIVE) 06/15/22 14:06 Urine Occult Blood NEGATIVE (NEGATIVE) 06/15/22 14:06 Urine Nitrite NEGATIVE (NEGATIVE) 06/15/22 14:06 Urine Bilirubin NEGATIVE (NEGATIVE) 06/15/22 14:06 Urine Urobilinogen 0.2 (NORMAL) E.U./dL (NORMAL) 06/15/22 14:06 Ur Leukocyte Esterase NEGATIVE (NEGATIVE) 06/15/22 14:06 Ur Microscopic Review NOT INDICATED 06/15/22 14:06 Urine Culture Comments NOT INDICATED 06/15/22 14:06 Stl C. diff Tox B Gene NEGATIVE (NEGATIVE) 06/21/22 16:08 SARS-CoV-2 (PCR) NOT DETECTED 06/15/22 12:15 - Procedures Procedures: Procedures COLONOSCOPY (09/11/13)
--- NOTE | 2022-06-22 12:34 | PROVIDER PROGRESS NOTE ---
Progress Note General Surgery Afternoon Progress Note I reviewed today's CT report as well as the CT images and can find no other int ra-abdominal abnormality to explain her abdominal symptoms other than pancreatitis. I'm not certain if there is actual pancreatic necrosis but regardless, the treatment at this point in the disease process is purely supportive. Her nocturnal fevers may be due to the cytokine response associated with the pancreatic inflammation but as we still do not have a clear source for the E.Coli bacteremia (it can occur in pancreatitis but is rare and usually associated with biliary tract obstruction), I would still treat with IV antibiotics until all blood cultures are negative and the stool samples have been received and analyzed. The use of PPN is prudent until that time that she can take adequate enteral nutrition. Wai Pierce MD General Surgery Service
--- NOTE | 2022-06-22 13:32 | XRAY Report ---
PROCEDURE: Chest for Line Placement INDICATIONS: picc line placement TECHNIQUE: One view of the chest was acquired. COMPARISON: 02/18/2021 chest x-ray FINDINGS: Surgical changes and devices: Right arm PICC is present, tip of which is in the mid SVC. Lungs and pleura: No pneumothorax. Small left pleural effusion. There is mild diffuse reticulonodula r pulmonary opacity. Mediastinum: Mediastinal contours appear normal. Heart size is normal. Bones and chest wall: No suspicious bony lesions. Overlying soft tissues appear unremarkable. IMPRESSION: 1. Bilateral pneumonia. Small left pleural effusion. Reviewed by: Ann Champion MD on 06/22/2022 1:31 PM PDT Approved by: Ann Champion MD on 06/22/2022 1:31 PM PDT Station ID: [id number]
--- NOTE | 2022-06-22 13:51 | ANESTHESIA PROCEDURE NOTE ---
Anesth Central Line Template - Central Line Central Line Preparation: Consent Obtained Central line location: Right Brachial Central line type: PICC Double Lumen Central line catheter tip site resides: Superior vena cava (SVC) Central line aftercare: Secured, Placement confirmed, No pneumothorax, No complications, Bundle checklist complete, Pt tolerated well
--- NOTE | 2022-06-22 13:54 | CONSULTATION NOTE ---
Consultation Report: Consulted by the Hospitalist for PICC line placement. Informed consent obtained. RUE 7Fr 2-lumen PICC line placed under US guidance. Sterile technique maintained. Tip trimmed to 37cm and secured with STATLOCK and sterile dressing applied. Both ports aspirated and flushed easily. Placement confirmed with CXR. Pt tolerated well. NAC.
[2022-06-22] MEDS: POTASSIUM CHLOR 10 MEQ/100 ML 10 MEQ/100 ML BAG IV SCH ×4 (14:48→17:47)
[2022-06-22] MEDS: SODIUM CHLORIDE FLUSH 0.9% 10 ML SYRINGE IVP PRN (14:48)
[2022-06-22] MEDS: ACETAMINOPHEN 1,000 MG/100 ML 1,000 MG/100 ML BAG IV PRN (18:48)
[2022-06-22] MEDS: FAT EMULSION 20% 250 ML IV SCH (18:58)
[2022-06-22] MEDS ORDERED: TPN (CLINIMIX E 5/15) 2,000 ML with MULTIVITAMIN 10 ML, TRACE ELEMENTS 1 ML IV SCH ×3 (19:00)
[2022-06-22] MEDS ORDERED: levoFLOXacin 750 MG/150 ML 750 MG/150 ML BAG IV SCH (19:00)
[2022-06-22] MEDS: MEROPENEM 1 GM in SODIUM CHLORIDE 0.9% MINIBAG 100 ML IV SCH (19:10)
[2022-06-23] MEDS: SODIUM CHLORIDE 0.9% 1,000 ML IV SCH (00:08)
[2022-06-23] MEDS: ONDANSETRON 4 MG/2 ML VIAL IVP PRN ×2 (00:08→09:05)
[2022-06-23] MEDS: SODIUM CHLORIDE FLUSH 0.9% 10 ML SYRINGE IVP SCH ×2 (00:09→09:00)
[2022-06-23] MEDS: MEROPENEM 1 GM in SODIUM CHLORIDE 0.9% MINIBAG 100 ML IV SCH ×2 (03:00→11:16)
[2022-06-23 05:46] LABS: ALBUMIN 2.2 g/dL (3.2-5.5); ALBUMIN/GLOBULIN RATIO 0.8 (1.0-2.2); BILIRUBIN,TOTAL 0.5 mg/dL (0.2-1.0); CALCIUM 7.6 mg/dL (8.5-10.3); CREATININE 0.7 mg/dL (0.4-1.0); PHOSPHORUS 2.2 mg/dL (2.5-4.6); POTASSIUM 3.5 mmol/L (3.5-5.0); TOTAL PROTEIN 4.8 g/dL (6.7-8.2)
[2022-06-23] MEDS: ACETAMINOPHEN 1,000 MG/100 ML 1,000 MG/100 ML BAG IV PRN (06:15)
--- NOTE | 2022-06-23 08:11 | XRAY Report ---
PROCEDURE: Chest 1 View X-Ray INDICATIONS: fever, Covid 1 mo ago TECHNIQUE: One view of the chest was acquired. COMPARISON: 06/22/2022 FINDINGS: Surgical changes and devices: Right arm PICC line Lungs and pleura: Small left pleural effusion and left basilar atelectasis. Mediastinum: Mediastinal contours appear normal. Heart size is normal. Bones and chest wall: No suspicious bony lesions. Overlying soft tissues appear unremarkable. IMPRESSION: Small left pleural effusion and left basilar atelectasis. Reviewed by: Alessandro Paredes MD on 06/23/2022 8:10 AM PDT Approved by: Alessandro Paredes MD on 06/23/2022 8:10 AM PDT Station ID: [id number]
[2022-06-23 08:19] LABS: BASOPHILS % (AUTO) 0.8 %; EOSINOPHILS % (AUTO) 0.2 %; HCT - HEMATOCRIT 37.1 % (37.0-47.0); HGB - HEMOGLOBIN 12.6 g/dL (12.0-16.0); LYMPHOCYTES % (AUTO) 6.8 %; MEAN CORPUSCULAR HEMOGLOBIN 30.9 pg (27.0-31.0); MEAN CORPUSCULAR VOLUME 90.9 fL (81.0-99.0); MONOCYTES % (AUTO) 2.2 %; NEUTROPHILS % (AUTO) 83.5 %; PLT - PLATELET COUNT 293 10^3/uL (130-450); RED BLOOD COUNT 4.08 10^6/uL (4.20-5.40); RED CELL DISTRIBUTION WIDTH 15.5 % (12.0-15.0); WHITE BLOOD COUNT 13.3 x10^3/uL (4.8-10.8)
[2022-06-23 08:23] LABS: ABNORMAL LYMPHS % (MANUAL) 0 %
[2022-06-23 08:45] LABS: BAND NEUTROPHILS % (MANUAL) 24 %; EOSINOPHILS # (MANUAL) 0.1 10^3/uL (0-0.7); LYMPHOCYTES # (MANUAL) 0.7 10^3/uL (1.5-3.5); LYMPHOCYTES % (MANUAL) 2 %; METAMYELOCYTES % (MANUAL) 3 %; MONOCYTES # (MANUAL) 0.1 10^3/uL (0.0-1.0); REACTIVE LYMPHS % (MANUAL) 3 %
[2022-06-23 08:47] LABS: DIFFERENTIAL COMMENT MANUAL DIFFERENTIAL
--- NOTE | 2022-06-23 08:51 | PROVIDER PROGRESS NOTE ---
Subjective - General Admit Date: 06/15/22 - Review of Systems General: positive: Weakness HEENT: positive: No symptoms Pulmonary: positive: No symptoms Cardiovascular: positive: No symptoms Gastrointestinal: positive: Other (Bloating, nauseated, mid-epigastric discomfort, diarrhea) Objective - Patient Data Vital Signs: Vital Signs x48h Temp Pulse Resp BP Pulse Ox 06/23/22 08:09 98.6 F 102 H 18 105/54 L 93 06/23/22 06:01 100.4 F H 06/23/22 05:00 99.3 F 114 H 16 134/69 H 99 Weight: Weight 06/21/22 06/22/22 06/23/22 23:59 23:59 23:59 Weight (kg) 64 kg 70.5 kg Intake & Output: Intake and Output Totals x24h 06/21/22 06/22/22 06/23/22 23:59 23:59 23:59 Intake Total 2847 3245.000 745 Output Total 100 550 Balance 2847 3145.000 195 - Lab Results Lab Results: 06/23/22 08:11 06/23/22 04:58 Other Lab Results: Lab Results x24hrs 06/23/22 06/23/22 06/23/22 Range/Units 08:12 08:11 04:58 WBC 13.3 H (4.8-10.8) x10^3/uL RBC 4.08 L (4.20-5.40) 10^6/uL Hgb 12.6 (12.0-16.0) g/dL Hct 37.1 (37.0-47.0) % MCV 90.9 (81.0-99.0) fL MCH 30.9 (27.0-31.0) pg MCHC 34.0 (32.0-36.0) g/dL RDW 15.5 H (12.0-15.0) % Plt Count 293 (130-450) 10^3/uL MPV 10.0 (7.9-10.8) fL Neut # (Auto) Not Reportable Lymph # (Auto) Not Reportable [place] # (Auto) Not Reportable Eos # (Auto) Not Reportable Baso # (Auto) Not Reportable Absolute Nucleated RBC Not Reportable Total Counted 100 Band Neuts % (Manual) 24 H (0 - 10) % Reactive Lymphs % (Man) 3 % Abnorm Lymph % (Manual) 0 % Metamyelocytes % 3 H ( - 0) % Nucleated RBC % Not Reportable Neutrophils # (Manual) 12.0 H (1.5-6.6) 10^3/uL Lymphocytes # (Manual) 0.7 L (1.5-3.5) 10^3/uL Monocytes # (Manual) 0.1 (0.0-1.0) 10^3/uL Eosinophils # (Manual) 0.1 (0-0.7) 10^3/uL Basophils # (Manual) 0.0 (0-0.1) 10^3/uL Differential Comment MANUAL DIFFERENTIAL WBC Morphology 2+ TOXIC GRANULATION (NORMAL) Sodium 132 L (135-145) mmol/L Potassium 3.5 (3.5-5.0) mmol/L Chloride 103 (101-111) mmol/L Carbon Dioxide 21 (21-32) mmol/L Anion Gap 8.0 (6-13) BUN 11 (6-20) mg/dL Creatinine 0.7 (0.4-1.0) mg/dL Estimated GFR (MDRD) 81 L (>89) Glucose 189 H (70-100) mg/dL Calcium 7.6 L (8.5-10.3) mg/dL Phosphorus 2.2 L (2.5-4.6) mg/dL Magnesium 2.0 (1.7-2.8) mg/dL Total Bilirubin 0.5 (0.2-1.0) mg/dL AST 33 (10-42) IU/L ALT 20 (10-60) IU/L Alkaline Phosphatase 48 (42-121) IU/L Total Protein 4.8 L (6.7-8.2) g/dL Albumin 2.2 L (3.2-5.5) g/dL Globulin 2.7 (2.1-4.2) g/dL Albumin/Globulin Ratio 0.8 L (1.0-2.2) Triglycerides 281 H ( - 149) mg/dL Procalcitonin 1.46 H (<0.5) ng/mL 06/22/22 Range/Units 04:41 WBC (4.8-10.8) x10^3/uL RBC (4.20-5.40) 10^6/uL Hgb (12.0-16.0) g/dL Hct (37.0-47.0) % MCV (81.0-99.0) fL MCH (27.0-31.0) pg MCHC (32.0-36.0) g/dL RDW (12.0-15.0) % Plt Count (130-450) 10^3/uL MPV (7.9-10.8) fL Neut # (Auto) Lymph # (Auto) [place] # (Auto) Eos # (Auto) Baso # (Auto) Absolute Nucleated RBC Total Counted Band Neuts % (Manual) (0 - 10) % Reactive Lymphs % (Man) % Abnorm Lymph % (Manual) % Metamyelocytes % ( - 0) % Nucleated RBC % Neutrophils # (Manual) (1.5-6.6) 10^3/uL Lymphocytes # (Manual) (1.5-3.5) 10^3/uL Monocytes # (Manual) (0.0-1.0) 10^3/uL Eosinophils # (Manual) (0-0.7) 10^3/uL Basophils # (Manual) (0-0.1) 10^3/uL Differential Comment WBC Morphology (NORMAL) Sodium (135-145) mmol/L Potassium (3.5-5.0) mmol/L Chloride (101-111) mmol/L Carbon Dioxide (21-32) mmol/L Anion Gap (6-13) BUN (6-20) mg/dL Creatinine (0.4-1.0) mg/dL Estimated GFR (MDRD) (>89) Glucose (70-100) mg/dL Calcium (8.5-10.3) mg/dL Phosphorus (2.5-4.6) mg/dL Magnesium (1.7-2.8) mg/dL Total Bilirubin (0.2-1.0) mg/dL AST (10-42) IU/L ALT (10-60) IU/L Alkaline Phosphatase (42-121) IU/L Total Protein (6.7-8.2) g/dL Albumin (3.2-5.5) g/dL Globulin (2.1-4.2) g/dL Albumin/Globulin Ratio (1.0-2.2) Triglycerides ( - 149) mg/dL Procalcitonin 1.68 H (<0.5) ng/mL - Current Medications Current Medications: Current Medications Generic Name Dose Route Start Last Admin Trade Name Freq PRN Reason Stop Dose Admin Enoxaparin Sodium 40 mg 06/16/22 09:00 06/22/22 08:42 Enoxaparin 40 Mg/0.4 Ml Syringe SUBQ 40 mg DAILY MARCOS Administration Multivitamins 10 ml/ TRACE 2,011 mls @ 83 mls/hr 06/22/22 19:00 06/22/22 18:58 ELEMENTS 1 ml/ Amino Ac/ IV 83 mls/hr Electrol/Dextrose/Calcium 1900 MARCOS Administration Protocol Acetaminophen 1,000 mg in 100 mls @ 400 mls/hr 06/22/22 18:21 06/23/22 06:52 Acetaminophen IV Infused Q6HR PRN Infusion Pain or Fever > 38C (100.4F) Sodium Chloride 1,000 mls @ 60 mls/hr 06/22/22 18:23 06/23/22 00:08 Normal Saline 0.9% IV 60 mls/hr .[id number] MARCOS Administration TKO Meropenem 1 gm/ Sodium 100 mls @ 200 mls/hr 06/22/22 19:00 06/23/22 03:35 Chloride IV Infused Q8H MARCOS Infusion Morphine Sulfate 2 mg 06/15/22 14:31 06/18/22 17:16 Morphine 2 Mg/Ml Carpuject IVP 1 mg Q2HR PRN Administration Pain 8 to 10 Ondansetron HCl 4 mg 06/15/22 14:31 06/19/22 16:54 Ondansetron Odt 4 Mg Tablet TL 4 mg Q6HR PRN Administration Nausea / Vomiting Ondansetron HCl 4 mg 06/15/22 14:31 06/23/22 00:08 Ondansetron 4 Mg/2 Ml Vial IVP 4 mg Q6HR PRN Administration Nausea / Vomiting Pantoprazole Sodium 40 mg 06/22/22 09:00 06/22/22 20:28 Pantoprazole 40 Mg Vial IV 40 mg BID MARCOS Administration Prochlorperazine Edisylate 10 mg 06/15/22 14:31 06/22/22 04:22 Prochlorperazine 10 Mg/2 Ml Vial IVP 10 mg Q6HR PRN Administration Nausea / Vomiting Sodium Chloride 10 ml 06/15/22 14:31 06/22/22 14:48 Sodium Chloride Flush 0.9% 10 Ml Syringe IVP 10 ml PRN PRN Administration NEEDED PER PROVIDER ORDERS Sodium Chloride 10 ml 06/15/22 17:00 06/23/22 00:09 Sodium Chloride Flush 0.9% 10 Ml Syringe IVP 10 ml 0100,0900,1700 MARCOS Administration - Physical Exam General Appearance: positive: No acute distress Eyes Bilateral: positive: Normal inspection ENT: positive: ENT inspection nml Neck: positive: Nml inspection Respiratory: positive: Breath sounds nml Cardiovascular: positive: Regular rate & rhythm Abdomen: positive: Other (Mild distension; mid-epigastric tenderness mild; no peritoneal signs; + BS) Extremities: positive: Pedal edema Impression/Plan - Problem List Problem List: Assessment: 1) Acute pancreatitis - the patient has been medically managed for 7 days without clinical improvement. Uncomplicated pancreatitis usually improves by now. 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 Recommendation: 1) Switch IV antibiotics to Merepenim 2) Continue PPN and oral diet as tolerated 3) Consultation with ID would be prudent. 4) If this patient were to require any type of pancreatic intervention (FNA, Necrosectomy), she should be transferred to a tertiary care facility. Wai Pierce MD General Surgery Service
[2022-06-23] MEDS: PANTOPRAZOLE 40 MG VIAL IV SCH (08:59)
[2022-06-23] MEDS ORDERED: LEVOTHYROXINE 100 MCG VIAL IVP SCH (09:00)
[2022-06-23] MEDS: ENOXAPARIN 40 MG/0.4 ML SYRINGE SUBQ SCH (09:00)
--- NOTE | 2022-06-23 11:53 | XRAY Report ---
PROCEDURE: Chest for Line Placement INDICATIONS: NG tube placement verification TECHNIQUE: One view of the chest was acquired. COMPARISON: Same-day radiograph FINDINGS: Surgical changes and devices: Right PICC terminates in the mid SVC. On the first image, the NG tube coils in the esophagus. It is not seen in the second image. Lungs and pleura: Small left pleural effusion. Possible trace right pleural effusion. Bibasilar opac ities, possibly atelectasis. Mild prominence of the interstitium. Mediastinum: Heart size is normal. Bones and chest wall: No suspicious bony lesions. Overlying soft tissues appear unremarkable. IMPRESSION: Right PICC terminates in the mid SVC. On the first image, the NG tube coils in the esophagus. It is n ot seen in the second image. Left effusion, possible trace right pleural effusion. Mild lung disease versus atelectasis. Reviewed by: Solo Cannon MD on 06/23/2022 11:52 AM PDT Approved by: Solo Cannon MD on 06/23/2022 11:52 AM PDT Station ID: [id number]
[2022-06-23 13:25] VITALS: BP 110/59
--- NOTE | 2022-06-23 13:38 | Discharge Plan ---
Discharge Plan Problem Reviewed?: Yes Disposition: 02 Transfer Acute Care Hosp Condition: Poor No Smoking: If you smoke, Please STOP! Call for help.
--- NOTE | 2022-06-23 13:39 | DISCHARGE SUMMARY ---
Discharge Summary Admit Date: 06/15/22 Discharge Date: 06/23/22 Discharging Provider: Dr Mary Lou Dobson Primary Care Provider: NILES Gonzales Code Status: Attempt Resuscitation Condition at Discharge: Poor Discharge Disposition: 02 Transfer Acute Care Hosp Discharge Facility Name: [facility] History of Present Illness: From the admission H&P of Dr Irma Marquez: Ms. William is a 77 year old woman with a history of hypothyroidism, who was diagnosed with pancreatitis today after presenting to the ED this morning with abdominal pain and nausea. She says the pain is located in the epigastric region and radiates to the right upper quadrant. The pain has been constant since it started. She says she drank some coffee this morning with honey when she suddenly felt nauseous. She went to the bathroom and felt like she was going to have diarrhea but did not have any bowel movement at that time. She had one episode of vomiting when she was at home and vomited up the coffee she drank earlier. She has continued to vomit throughout the rest of today and the vomit has been yellow in color. She says the pain also started during this time too and the pain has been constant since this morning. She says she has never had pain like this before. She did eat some food at a [email or web address] restaurant last night and drank some wine with her dinner. She has experienced episodes of epigastric abdominal pain on and off in the past 30 years, which she says was caused by indigestion related to eating an unhealthier diet. She takes Tums for the indigestion. She has also taken Omeprazole one to two times a day for acid reflux. She does not have a history of right upper quadrant abdominal pain. She also does not have a history of abdominal surgeries. She does not have a family history of pancreatitis, frequent use of alcohol, or unexplained weight loss. She does not have any fever, chest pain, or shortness of breath. She was diagnosed with COVID-19 and influenza at the same time four weeks ago, and expe rienced nasal congestion, a cough and a lack of appetite . She has recovered from this since. She has undergone CT abd and MRCP which do not show any intra ductal dilatation or stenosis. She does not have gallstones. There is edema and stranding of the pancreas. Her WBC is 19.8 with 20% Bands. Lipase is > 4800, LFTs are normal. Electrolytes are normal. Covid test is neg. She is being admitted with pancreatitis. - HOSPITAL COURSE Hospital Course: (1) Acute pancreatitis Cause was not clear since she did not have gallbladder disease, nor high Triglycerides and had no Hx of alcohol abuse. Possibly she has ideopathic pancreatitis or a form associated with COVID, since she had COVID one month previously. She was given iv fluids, iv antiemetics and bowel rest ordered. Her lipase improved. When her N/V recurred, we ordered PPN then a PICC line and TPN. Her WBC danielle and she started to spike fevers. Repeat CT imaging was done on 05/22 and showed new heterogenous pancreatic changes, consistent with necrosis. (2) Necrotizing pancreatitis When her repeat CT imaging was done on 05/22/22 and showed new heterogenous pancreatic changes, consistent with necrosis, Gen Surgery advised transfer. She was accepted and transferred to [facility] by ambulance in stable condition on 05/23/22. (3) E coli bacteremia Her blood cultures drawn in the ER quickly turned pos and grew E coli. Cause was unclear, but an abdominal source was presumed. She was on iv Meropenam, then iv Floxacin and Flagyl, then we started her on oral Floxacin and Flagyl, to prepare her for home discharge, when she was tolerating a diet. Repeat blood cultures back negative. Her WBC finally improved & Procalcitonin decreased. Then she redeveloped abdominal pain, N/V and fever spikes. WBC danielle and we restarted iv Meropenam and she was transferred on this. (4) Diarrhea Liquidy diarrhea was a new problem for her at mid-hospital stay. She denied abdominal pain or blood in the stool. Diarrhea happened after any oral intake. Her stool for C. diff was neg. We ordered stool for bacterial cultures that were pending. The repeat abdominal CT did not show colitis. (5) Hypokalemia This was likely from inadequate intake and diarrhea. It was replaced (6) Hypothyroidism We restarted her home med, but had to change it to iv form when her nausea and vomiting recurred. - ALLERGIES Allergies/Adverse Reactions: Allergies Allergy/AdvReac Type Severity Reaction Status Date / Time metronidazole [From Flagyl] Allergy Unknown Unknown Verified 06/15/22 11:29 Metronidazole HCl * Allergy Unknown Unknown Verified 06/15/22 11:29 [From Flagyl] - MEDICATIONS Home Medications: Ambulatory Orders Medication Instructions Recorded Confirmed Levothyroxine [Synthroid] 75 mcg PO QDAC 06/15/22 06/16/22 Calcium Carbonate [Tums (Calcium 1,000 mg PO BID PRN 06/16/22 06/16/22 Carbonate 500mg)] - PHYSICAL EXAM AT DISCHARGE General Appearance: positive: No acute distress, Alert, Other (Appears tired) Eyes Bilateral: positive: Normal inspection, EOMI ENT: positive: ENT inspection nml, Other ([place]) Neck: positive: Nml inspection, No JVD Respiratory: positive: No respiratory distress, Breath sounds nml Cardiovascular: positive: Regular rate & rhythm, No murmur Abdomen: positive: Non-tender, Nml bowel sounds, No distention Skin: positive: Warm, Dry Extremities: positive: Non-tender, No pedal edema Neurologic/Psychiatric: positive: Oriented x3 (Non-focal) - LABS Result Diagrams: 06/23/22 08:11 06/23/22 04:58 - DIAGNOSTIC IMAGING Diagnostic Imaging Results: Final report reviewed - FOLLOW UP Follow Up: This will be determined after her stay at [facility] - TIME SPENT Time Spent in Discharge (Minutes): 55
[2022-06-23] MEDS ORDERED: SODIUM CHLORIDE 0.9% 0 ML IV ONE (15:59)
[2022-06-25] MEDS ORDERED: LEVOTHYROXINE 100 MCG VIAL IVP SCH (09:00)
== END 2022-06-23 14:10 | disposition short-term general hospital (02) | DRG 439 ==
LOC: EDUNIT# → ED 11:12 → MS2 14:31
PROVIDERS: ADMIT Specialist; ATTEND Internal Medicine
PROC: 02HV33Z Insertion of Infusion Device into Superior Vena Cava, Percutaneous Approach (ICD-10-PCS; principal; 2022-06-22)
DX: K85.90 Acute pancreatitis without necrosis or infection, unspecified (principal); K85.91 Acute pancreatitis with uninfected necrosis, unspecified; R78.81 Bacteremia; Z20.822 Contact with and (suspected) exposure to COVID-19; R19.7 Diarrhea, unspecified; E87.6 Hypokalemia; E03.9 Hypothyroidism, unspecified; I10 Essential (primary) hypertension; Z86.16 Personal history of COVID-19; K21.9 Gastro-esophageal reflux disease without esophagitis; E78.00 Pure hypercholesterolemia, unspecified; Z87.891 Personal history of nicotine dependence; R51.9 Headache, unspecified
CPT/HCPCS: 36415; 71045; 74177; 74183; 76705; 80048; 80053; 80061; 81003; 83605; 83615; 83690; 83735; 84100; 84132; 84134; 84145; 84478; 85025; 86140; 87040; 87045; 87046; 87077; 87150; 87181; 87427; 87493; 87635; 93005; 96374; 96375; 99284; 99285; A9270; A9585; J0131; J1650; J2185; J2765; J3490; J7120; Q0162; Q9963; Q9967; 81001; 83721; 84146; 87086

== ENCOUNTER 2022-06-23 13:59 | Outpatient (CLI) | payer MEDICARE | END 2022-06-23 14:00 | disposition short-term general hospital (02) | LOC: EMS 13:59 | PROVIDERS: ATTEND Internal Medicine | DX: K85.90 Acute pancreatitis without necrosis or infection, unspecified (principal) | CPT/HCPCS: A0425; A0426 ==

== ENCOUNTER 2022-10-02 14:11 | Outpatient (CLI) | payer MEDICARE ==
--- NOTE | 2022-10-03 12:23 | Mammography Report ---
BILATERAL DIGITAL SCREENING MAMMOGRAM 3D/2D: 10/02/2022 CLINICAL: Routine screening. Comparison is made to exams dated: 05/21/2020 mammogram, 05/19/2019 mammogram, 04/26/2018 mammogram, 12/18 mammogram, and 12/25/2014 mammogram - [facility]. Both breasts are heterogeneously dense, which may obscure small masses (category c / 51-75% glandular tissue). There are benign calcifications in both breasts. There also are benign vascular calcifications in th e left breast. No significant masses, calcifications, or other findings are seen in either breast. There has been no significant interval change. IMPRESSION: BENIGN There is no mammographic evidence of malignancy. A 1 year screening mammogram is recommended. Based on the Tyrer Cuzick model (a risk assessment model) the patients lifetime risk is 4.7% and her 10 year risk is 0.0%. According to the ACR, ACS, and NCCN guidelines, an annual breast MRI exam gissel g with mammogram is recommended if the patients lifetime risk is 20% or greater. This exam was interpreted at Station ID: [id number]. NOTE: For mammograms, a report in lay terms will be sent to the patient. Approximately 15% of breast malignancies will not be visualized mammographically. In the management of a palpable breast mass, a negative mammogram must not discourage biopsy of a clinically suspicious lesion. Electronically Signed By: Toni Nava M.D. slc/penrad:10/02/2022 15:07:57 ACR BI-RADS Category 2: Benign Finding(s) 3342F PARENCHYMAL PATTERN: (D) - The breast(s) demonstrate(s) heterogeneously dense fibroglandular theresa nickerson. BI-RADS CATEGORY: (2) - 2 RECOMMENDATION: (ANNUAL) - Recommend routine annual screening mammography. [id number] 1 year screening LATERALITY: (B)
== END 2022-10-02 14:12 | disposition home or self-care (01) ==
LOC: DI 14:11
PROVIDERS: ATTEND Nurse Practitioner Family
DX: Z12.31 Encounter for screening mammogram for malignant neoplasm of breast (principal)

== ENCOUNTER 2022-10-02 14:11 | Outpatient (CLI) | payer MEDICARE ==
--- NOTE | 2022-10-02 21:45 | DEXA Report ---
PROCEDURE: Dexa Spine and/or Hip INDICATIONS: OSTEOPOROSIS TECHNIQUE: Dual energy x-ray absorptiometry (DXA) was performed on a [facility]. Regions measur ed are the AP Spine, femoral neck, and if needed forearm. COMPARISON: 05/13/2020 FINDINGS: Lumbar Spine: Bone Mineral Density 1.287 g/cm/cm,T score 0.9, normal. Previous T score 0.6. Significant interval increase in bone mineral density since the prior exam, unclear if related to true interval improveme nt or related to increase in degenerative changes. Left Femoral Neck: Bone Mineral Density 0.693 g/cm/cm, T score -2.5, osteoporosis. Previous T score -2.6. Left Hip: Bone Mineral Density 0.772 g/cm/cm,T score -1.9, osteopenia. Previous T score -1.6. No significant i nterval change in bone mineral density. (T score greater or equal to -1.0: NORMAL) (T score from -1.1 to -2.4: OSTEOPENIA) (T score less than or equal to -2.5 to: OSTEOPOROSIS) Impression: Osteoporosis. Patients with diagnosis of osteoporosis or osteopenia should have regular bone mineral density assess ment. For those eligible for Medicare, routine testing is allowed once every 2 years. Testing frequ ency can be increased for patients who have rapidly progressing disease or for those who are receivin g medical therapy to restore bone mass. Reviewed by: Travis Gooden MD on 10/02/2022 9:43 PM PST Approved by: Travis Gooden MD on 10/02/2022 9:43 PM PST Station ID: [id number]
== END 2022-10-02 14:12 | disposition home or self-care (01) ==
LOC: DI 14:11
PROVIDERS: ATTEND Nurse Practitioner Family
DX: M81.0 Age-related osteoporosis without current pathological fracture (principal)

== ENCOUNTER 2024-01-12 07:00 | Outpatient (CLI) | payer MEDICARE ==
--- NOTE | 2024-01-12 13:48 | XRAY Report ---
PROCEDURE: Chest 2V INDICATIONS: SHORTNESS OF BREATH TECHNIQUE: 2 views of the chest were acquired. COMPARISON: 06/23/2022 FINDINGS: Surgical changes and devices: None. Lungs and pleura: Peripheral reticulation of the lungs, diffuse on the right and lower lung predomin ance on the left. Mediastinum: Mediastinal contours appear normal. Heart size is normal. Bones and chest wall: No suspicious bony lesions. Overlying soft tissues appear unremarkable. IMPRESSION: Scattered peripheral reticulation of the lungs, possibly interstitial lung disease or less likely pul monary edema. Reviewed by: Selwyn Avila MD on 01/12/2024 1:47 PM PDT Approved by: Selwyn Avila MD on 01/12/2024 1:47 PM PDT Station ID: [id number]
== END 2024-01-12 23:59 | disposition home or self-care (01) ==
LOC: DI.S 07:00
PROVIDERS: ATTEND Physician Assistant Medical
DX: R05.9 Cough, unspecified (principal); R06.02 Shortness of breath

== ENCOUNTER 2024-01-12 08:00 | Outpatient (CLI) | payer MEDICARE | END 2024-01-12 08:01 | disposition home or self-care (01) | LOC: LAB.S 08:00 | PROVIDERS: ATTEND Physician Assistant Medical | DX: R05.9 Cough, unspecified (principal) ==

== ENCOUNTER 2024-01-30 10:57 | Outpatient (CLI) | payer MEDICARE ==
--- NOTE | 2024-01-31 09:38 | Mammography Report ---
BILATERAL DIGITAL SCREENING MAMMOGRAM 3D/2D: 01/30/2024 CLINICAL: Routine screening. Family history of breast cancer. Comparison is made to exams dated: 10/02/2022 mammogram, 05/21/2020 mammogram, and 05/19/2019 mammogram - [facility]. Both breasts are heterogeneously dense, which may obscure small masses (category c / 51-75% glandular tissue). There are benign calcifications in both breasts. No significant masses, calcifications, or other findings are seen in either breast. There has been no significant interval change. IMPRESSION: BENIGN There is no mammographic evidence of malignancy. A 1 year screening mammogram is recommended. Based on the Tyrer Cuzick model (a risk assessment model) the patient's lifetime risk is 3.5% and her 10 year risk is 0.0%. According to the ACR, ACS, and NCCN guidelines, an annual breast MRI exam gissel g with mammogram is recommended if the patient's lifetime risk is 20% or greater. This exam was interpreted at Station ID: [id number]. NOTE: For mammograms, a report in lay terms will be sent to the patient. Approximately 15% of breast malignancies will not be visualized mammographically. In the management of a palpable breast mass, a negative mammogram must not discourage biopsy of a clinically suspicious lesion. Electronically Signed By: Solo brumfield/hilario:01/30/2024 12:25:57 letter sent: No_Letter ACR BI-RADS Category 2: Benign Finding(s) 3342F PARENCHYMAL PATTERN: (D) - The breast(s) demonstrate(s) heterogeneously dense fibroglandular theresa nickerson. BI-RADS CATEGORY: (2) - 2 RECOMMENDATION: (ANNUAL) - Recommend routine annual screening mammography. [id number] 1 year screening LATERALITY: (B)
== END 2024-01-30 10:58 | disposition home or self-care (01) ==
LOC: DI.S 10:57
PROVIDERS: ATTEND Nurse Practitioner Family
DX: Z12.31 Encounter for screening mammogram for malignant neoplasm of breast (principal); R92.333 Mammographic heterogeneous density, bilateral breasts; Z80.3 Family history of malignant neoplasm of breast

== ENCOUNTER 2024-03-28 19:17 | Emergency (ER) | payer MEDICARE ==
--- NOTE | 2024-03-28 21:09 | ED Physician Documentation ---
PD HPI LOWER EXT INJURY - Stated complaint Stated Complaint: LT LEG SWELLING - Chief complaint Chief Complaint: Ext Problem - History obtained from History obtained from: Patient - Additional information Additional information: 79-year-old female presents for evaluation of left lower extremity pain and swelling. Patient states that over a week ago she slipped backwards on some gravelAt that time she does not remember any particular injury to her left knee or leg, however it has continued to be swollen and painful. Her brother is at bedside and they state that they are very concerned that patient may have a blood clot. They report a history of DVT in their family and want to make sure that patient does not currently have a DVT. Review of Systems Constitutional: denies: Fever, Chills Skin: denies: Rash, Lesions, Abrasion (s) Musculoskeletal: reports: Extremity pain, Joint pain, Extremity swelling, Joint swelling PD PAST MEDICAL HISTORY - Past Medical History Past Medical History: Yes Cardiovascular: Hypertension, High cholesterol Respiratory: None Neuro: None Endocrine/Autoimmune: HyPOthyroidism GI: GERD LOGGING WORKER: None : None HEENT: None Psych: Anxiety Musculoskeletal: None Derm: Other - Past Surgical History Past Surgical History: Yes Ortho: Carpal Tunnel surgery, Other - Present Medications Home Medications: Ambulatory Orders Medication Instructions Recorded Confirmed Levothyroxine [Synthroid] 75 mcg PO QDAC 06/15/22 03/28/24 Multivit/Folic Acid/Vit K1 1 each PO DAILY 03/28/24 03/28/24 [Women's 50 Plus Advanced Mv Tb] Pantoprazole [Protonix] 40 mg PO DAILY 03/28/24 03/28/24 Sertraline [Zoloft] 25 mg PO DAILY 03/28/24 03/28/24 - Allergies Allergies/Adverse Reactions: Allergies Allergy/AdvReac Type Severity Reaction Status Date / Time metronidazole [From Flagyl] Allergy Unknown Unknown Verified 03/28/24 19:25 Metronidazole HCl * Allergy Unknown Unknown Verified 03/28/24 19:25 [From Flagyl] - Social History Does the pt smoke?: No Smoking Status: Never smoker Does the pt drink ETOH?: Yes Does the pt have substance abuse?: No - Immunizations Immunizations are current?: Yes PD ED PE NORMAL - Vitals Vital signs reviewed: Yes - General General: Alert and oriented X 3, No acute distress, Well developed/nourished - Cardiac Cardiac: RRR, Strong equal pulses - Respiratory Respiratory: No respiratory distress - Abdomen Abdomen: Soft, Non tender, Non distended - Derm Derm: Normal color, Warm and dry, No rash - Extremities Extremities: No deformity, Other (mild swelling along medial aspect of distal lower left leg. No edema) - Neuro Neuro: Alert and oriented X 3, level vial grinder 2-12 intact, No motor deficit, Normal speech Results - Vitals Vitals: Oxygen O2 Source Room air PD Medical Decision Making - ED course Complexity details: reviewed results, re-evaluated patient, considered differential, d/w patient, d/w family ED course: Patient presenting for persistent left leg pain, she is concerned that she may have a blood clot. There is a small amount of swelling noted to the medial aspect of the distal left lower leg. No excessive warmth or fluctuance to suggest abscess or cellulitis. Ultrasound imaging ordered. Ultrasound negative for DVT. Patient informed of ultrasound results, she is relieved to know that there is no blood clot and she will follow-up with her primary care doctor if she continues to experience pain. Departure - Departure Disposition: 01 Home, Self Care Clinical Impression: Left leg pain Condition: Stable Instructions: ED Contusion Lower Ext Comments: Your ultrasound today was normal. There is no blood clot in your leg. I do not know the cause of your continued pain, however I recommend following up with your primary care doctor if you continue to experience symptoms. Forms: PCP List Discharge Date/Time: 03/28/24 23:43
--- NOTE | 2024-03-28 23:32 | Ultrasound Report ---
PROCEDURE: Duplex Ext Veins Left INDICATIONS: LLE SWELLING TECHNIQUE: Real-time imaging, as well as color and pulse Doppler interrogation, were performed of the lower extr emity deep veins from the inguinal ligament to the popliteal fossa. Attempted visualization of the ca lf veins was performed. COMPARISON: None. FINDINGS: The deep veins are normally compressible, and free of intraluminal thrombus. Color and pu lse Doppler demonstrate normal phasic intraluminal flow. There is normal augmentation response to di stal compression maneuver. IMPRESSION: No deep venous thrombosis of the visualized lower extremity. Reviewed by: Toni Nava MD on 03/28/2024 11:31 PM PDT Approved by: Toni Nava MD on 03/28/2024 11:31 PM PDT Station ID: [id number]
[2024-03-28 23:44] VITALS: BP 138/63; O2SAT 100
== END 2024-03-28 23:43 | disposition home or self-care (01) ==
LOC: ED 19:17
DX: M79.662 Pain in left lower leg (principal); I10 Essential (primary) hypertension; E78.00 Pure hypercholesterolemia, unspecified; E03.9 Hypothyroidism, unspecified; K21.9 Gastro-esophageal reflux disease without esophagitis; F41.9 Anxiety disorder, unspecified
CPT/HCPCS: 99283